=== PATIENT | male | born 1960 | race Caucasian/White ===

== ENCOUNTER → 2017-01-30 14:29 | Emergency (ER) | payer BC, MEDICAID ==
--- NOTE | 2017-01-30 16:12 | RAD ---
Indication: Hand injury, traumatic 4 views of left hand demonstrates no fracture. No other bone or joint abnormality is noted. Degenerative changes of the first scaphotrapezial trapezium joint is noted. IMPRESSION: No fracture of the left hand is noted.
--- NOTE | 2017-01-30 16:13 | RAD ---
Indication: Wrist injury, traumatic 2 views of left wrist demonstrates degenerative changes between the scaphoid and trapezium. No fracture is noted. 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
[2017-01-30 16:45] VITALS: BP 134/92
--- NOTE | 2017-01-30 16:48 | ED ---
Upper Extremity Pain - HPI Summary HPI Summary: Patient presents to ED with CC of right hand pain after a crush injury to the area 2 hours ago. He notes to a piece of his tractor fell down onto his hand and pinched between 2 objects. He notes to 4/10 pain, worse between thumb and index finger with mild bruising noted over the area. He is able to clench his fist, flex and extend at the wrist and rotate at the wrist. Denies numbness, tingling or temperature changes. Denies previous injury to the area. Hx of blood clots and currently on xarelto. - History of Current Complaint Chief Complaint: EDExtremityUpper Stated Complaint: LT HAND PAIN Time Seen by Provider: 01/30/17 16:22 Hx Obtained From: Patient Mechanism Of Injury: Blunt Trauma Onset/Duration: Started Hours Ago Timing: Constant Severity Initially: Moderate Severity Currently: Moderate Pain Location: Hand Character: Aching, Throbbing Aggravating Factor(s): Movement Alleviating Factor(s): Rest, Ice, Compression Associated Signs & Symptoms: Positive: Bruising Related History: Dominant Hand Right - Risk Factors Non-Orthopedic Risk Factor: Negative DVT Risk Factors: Negative Septic Arthritis Risk Factor: Negative Compartment Syndrome Risk Factors: Pain - Allergies/Home Medications Allergies/Adverse Reactions: Allergies Allergy/AdvReac Type Severity Reaction Status Date / Time Penicillins Allergy Intermediate Hives Verified 04/14/16 10:34 PMH/Surg Hx/FS Hx/Imm Hx Previously Healthy: Yes - HCL, PVD, DVT Endocrine/Hematology History: Reports: Hx Anticoagulant Therapy Denies: Hx Blood Disorders, Hx Diabetes Cardiovascular History: Reports: Hx Hypercholesterolemia, Hx Peripheral Vascular Disease, Other Cardiovascular Problems/Disorders - hardening of the arteries Denies: Hx Hypertension History: Denies: Hx Renal Disease Sensory History: Reports: Hx Contacts or Glasses Opthamlomology History: Reports: Hx Contacts or Glasses - Surgical History Surgery Procedure, Year, and Place: 01/2007 abdominal aorta repair; 07/2008 femoral bypass; 02/2011 arterial femoral bypass - Immunization History Date of Influenza Vaccine: declines Hx Pertussis Vaccination: No Immunizations Up to Date: Unable to Obtain/Confirm Infectious Disease History: No Infectious Disease History: Denies: Traveled Outside the [place] in Last 30 Days - Family History Known Family History: Positive: None - Social History Occupation: Employed Full-time Lives: With Family Alcohol Use: Occasionally Hx Substance Use: No Substance Use Type: Reports: None Smoking Status (MU): Light Every Day Tobacco Smoker Amount Used/How Often: 1 PDD Length of Time of Smoking/Using Tobacco: previously, 3PPD Review of Systems Constitutional: Negative Eyes: Negative Cardiovascular: Negative Respiratory: Negative Positive: no symptoms reported, see HPI Positive: Arthralgia, Myalgia Positive: Bruising Neurological: Negative Psychological: Normal All Other Systems Reviewed And Are Negative: Yes Physical Exam Triage Information Reviewed: Yes Vital Signs On Initial Exam: Initial Vitals Temp Pulse Resp BP Pulse Ox 97.2 F 113 20 141/80 96 01/30/17 14:32 01/30/17 14:32 01/30/17 14:32 01/30/17 14:32 01/30/17 14:32 Vital Signs Reviewed: Yes Appearance: Positive: Well-Appearing, No Pain Distress, Well-Nourished Skin: Positive: Warm, Skin Color Reflects Adequate Perfusion, Other - bruising noted over left dorsum of hand Neck: Positive: Supple, No Lymphadenopathy Respiratory/Lung Sounds: Positive: Clear to Auscultation, Breath Sounds Present Cardiovascular: Positive: Normal, RRR, Pulses are Symmetrical in both Upper and Lower Extremities Musculoskeletal: Positive: Pain @ - left dorsum of hand pain Psychiatric: Positive: Normal AVPU Assessment: Alert Diagnostics - Vital Signs Vital Signs Temp Pulse Resp BP Pulse Ox 01/30/17 14:32 97.2 F 113 20 141/80 96 - Laboratory Lab Statement: Any lab studies that have been ordered have been reviewed, and results considered in the medical decision making process. Course/Dx - Course Course Of Treatment: bruising noted over left dorsum of hand s/p crush injury. Xray of hand and wrist negative for fx. shows degenerative changes. Patient made aware. Encouarged tylenol and return if symptoms persist. Continue on xarelto as prescribed. Shun wrapped area for patient comfort. - Diagnoses Differential Diagnosis/HQI/PQRI: Positive: Contusion, Fracture (Open), Fracture (Closed) Provider Diagnoses: Contusion, hand Discharge - Discharge Plan Condition: Stable Disposition: HOME Patient Education Materials: Crush Injury (ED) Referrals: Reyna Morales NP [Primary Care Provider] - Additional Instructions: Follow up with PCP as needed Ibuprofen 600mg three times daily for pain Ice to the area x 2-3 days Continue with shun wrap for your comfort for at least 1 day. If you develop worsening bruising or swelling, return to ED. Images - Images Hands: 1 - pain with palpation
== END | disposition home or self-care (01) ==
LOC: ED 14:29
DX: S60.222A Contusion of left hand, initial encounter (principal); W23.0XXA Caught, crushed, jammed, or pinched between moving objects, initial encounter; Y92.9 Unspecified place or not applicable; E78.00 Pure hypercholesterolemia, unspecified; I73.9 Peripheral vascular disease, unspecified
CPT/HCPCS: 99282

== ENCOUNTER 2017-10-02 17:30 | Emergency (ER) | payer MEDICAID ==
--- OUTSIDE RECORDS SUMMARY | 2017-10-02 17:48 | XMS REPORT ---
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 PayID: [id number] SANDRA Arrieta [id number] Medigap Part B Expires: 2015 Policy Number: Oscar Layton [id number] Group Name: [employer] [address] PayID: [id number] SANDRA Arrieta [id number] Medigap Part B Effective: Policy Number: Oscar FLO Yady Layton 2015 [id number] Expires: 2016 Group Name: [employer] 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 He is eating some fruits and vegetables, not regularly Pets 2 dogs Pets 2 cats Occupation Currently Working [employer] in [place] Cigarette Use current cigarette smoker down to less than 1 pack daily ETOH Use Rarely consumes alcohol very rare drink Recreational Drug Use Denies Drug Use Smoking Patient is a current smoker, smokes every day Daily Caffeine Consumes on average 1 pot of coffee per day Exercise Type/Frequency Does not exercise job is very active Allergies, Adverse Reactions, Alerts Date Description Reaction Status Severity Comments 10/24/2006 PCN active Hives Medications Medication Date Status Form Strength Qnty SIG Indications Ordering Provider Chantix 09/10/ Active Tablets 0.5mg X 60tab one by mouth [place] Starting Month 2017 11 & s twice a day, Demario Morales Carlos 1 mg X 42 start per [employer] package directions Ruben Contour 08/03/ Active Strips 100un test blood E11.65 [place] Next Blood 2018 its sugar twice Demario Morales, Glucose Test a day & [employer] as needed Metformin HCL 05/03/ Active Tablets ER 500mg 30tab 1 po daily E11.65 [place] ER (Mod) 2016 24HR s Demario Morales [employer] Breo Ellipta 02/22/ Active Aerosol 200-25mcg 60uni 1 puff daily [place] 2016 /Inh ts for Demario Morales, breathing [employer] Nebulizer 04/10/ Active Kit 2unit use with [place] Kit/Tubing/[place] 2016 s albuterol as Demario Morales thpiece needed for [employer] breathing Proair HFA 02/14/ Active Aerosol 108(90Bas 8.500 1-2 puffs J44.9 [place] 2015 e) gm every 4-6 Demario Morales, mcg/Act hours as [employer] needed for wheeze or shortness of breath T.E.D. 02/10/ Active Misc 3unit Wear Daily I82.431 [place] Anti-Embolism 2016 s On The Right Demario Morales Stockings Leg [employer] Thigh High Albuterol 01/23/ Active Nebulizer (2.5mg/3M 75uni Inhale The J44.1 [place] Sulfate 2015 L) 0.083% ts Contents Of YosefKeisha Andrew, One Vial Via [employer] Nebulizer Every 4 Hours as Needed Atorvastatin 06/30/ Active Tablets 20mg 90tab take one [place] Calcium 2012 s tablet by Demario Morales, mouth every [employer] day for cholesterol Vitamin C 03/15/ Active Tablets 1000mg 1 po daily Reyna 2009 Demario Morales [employer] Xarelto / Active Tablets 20mg 60tab take one [place] s tablet by Demario Morales, mouth daily [employer] Nicotrol 02/03/ Hx Inhaler 10mg 168un puff 20 Z72.0 Camiloraymundo 2015 - its minutes Demario Morales, 05/04/ every 2-3 [employer] 2017 hours daily for 12 weeks; then gradually wean down over 12 weeks Prednisone 01/23/ Hx Tablets 50mg 5tabs one pill by J44.1 Reyna 2015 - mouth daily Demario Morales, 02/02/ for 5 days [employer] 2015 for breathing Advair Diskus 10/28/ Hx Aerosol 250-50mcg 60uni use 1 J44.9 [place] 2015 - /Dose ts inhalation Demario Morales 05/04/ two times a [employer] 2016 day Nasonex 09/30/ Hx Suspension 50mcg/Act 17gm 2 sprays J30.9 Reyna 2015 - each nostril Demario Morales, 05/04/ daily for [employer] 2016 rhinitis Dulera 09/02/ Hx Aerosol 200-5mcg/ 8.800 2 puff2 J44.9 [place] 2015 - Act gm twice a day Demario Morales, 10/28/ for [employer] 2015 breathing Proventil HFA 09/02/ Hx Aerosol 108(90Bas 6.7un Inhale Two J44.9 [place] 2015 - e) its Puffs By Demario Morales, 02/14/ mcg/Act Mouth Every [employer] 2016 4 Hours as Needed For Cough Wheeze Or For Shortness Of Breath Lipitor 06/12/ Hx Tablets 20mg 90tab 1 po qd for [place] 2012 - cholesterol Yosef. Andrew, 06/30/ [employer] 2012 Clobetasol 03/27/ Hx Foam 0.05% 50gm apply golf Shawn[place] Propionate 2013 - ball sized Demario Morales, 09/02/ amount to [facility]- 2016 scalp qhs for itching and dermatitis Atorvastatin 06/07/ Hx Tablets 40mg 45tab 1/2 po daily [place] Calcium 2011 - s for R. Andrew, 06/12/ cholesterol [facility] 2012 Clindamycin 04/18/ Hx Capsules 150mg 30cap 1 po tid for 528.3 [place] HCL 2009 - s 10 days for Demario Morales, 02/23/ dental [facility] 2010 infection Plavix 03/15/ Hx Tablets 75mg 1 po qd [place] 2009 - R. Andrew, 03/23/ [employer] 2016 Aspirin 03/15/ Hx Tablets DR 81mg 1 po qd [place] 2009 - R. Andrew, 03/23/ [employer] 2017 Keflex 09/09/ Hx Capsules 500mg 40cap 1 po qid for 461.8 [place] 2009 - s 10 days R. Andrew, 09/19/ [facility] 2009 Lipitor 06/04/ Hx Tablets 40mg 112ta 1/2 po daily [place] 2008 - bs for R. Andrew, 06/07/ cholesterol [employer] 2012 Doxycycline 09/22/ Hx Capsules 100mg 20cap 1 po bid for 780.60 [place] Hyclate 2008 - s infection R. Andrew, 03/15/ [employer] 2010 Lipitor 06/26/ Hx Tablets 20mg 56tab 1 PO qd Coreen 2007 - s P. 06/04/ Blegen, 2009 M.DKeisha Simvastatin 03/18/ Hx Tablets 40mg 30tab one po qhs Coreen 2006 - s P. 06/18/ Blegen, 2007 MSima Toprol XL 01/31/ Hx Tablets 25mg 15tab 1/2 po qd Coreen 2007 - s P. 03/15/ Blegen, 2009 Amaris Chantix 12/13/ Hx 0.5mg 1Pack Use as Coreen Starter Pack 2006 - - P. 02/23/ 0.5 MG qd X Blegen, 2010 3 Days Then M.D. 0.5 MG bid X 4 Days Then 1 MG PO bid. Quit Smoking After First Week On Med. Simvastatin 12/10/ Hx Tablets 20mg 30tab one po qhs Coreen 2006 P. 03/18/ Blegen, 2006 M.D. Tricor 11/28/ Hx Tablets 145mg 30tab 1 po qd Coreen 2006 P. 12/10/ Blegen, 2006 M.D. Tramadol HCL / Hx Tablets [facility] every R. , 03/23/ 4 hours as [employer] 2017 needed for pain. Colace Clear / Hx Capsules 50mg Take one Unknown 0000 - capsule by 03/23/ mouth every 2016 day as needed. Immunizations CPT Code Status Date Vaccine Lot # [id number] Refused 01/24/2016 Influenza Virus Vaccine, Quadrivalent, 3 Yr > Quad, Preserv Free Vital Signs Date Vital Result Comment 09/10/2017 Weight 197.00 lb Weight in kg's 89.359 BP Systolic 132 mmHg BP Diastolic 80 mmHg Heart Rate 98 /min Body Temperature 97.8 F Respiratory Rate 20 /min 08/03/2017 Weight 200.00 lb Weight in kg's 90.720 BP Systolic 122 mmHg BP Diastolic 70 mmHg Heart Rate 84 /min Body Temperature 97.2 F Respiratory Rate 16 /min O2 % BldC Oximetry 98 % 05/03/2017 Weight 199.00 lb Weight in kg's 90.266 BP Systolic 120 mmHg BP Diastolic 70 mmHg Heart Rate 88 /min Body Temperature 98.3 F Respiratory Rate 16 /min 03/23/2017 Weight 198.00 lb Weight in kg's 89.813 BP Systolic 124 mmHg BP Diastolic 72 mmHg Heart Rate 84 /min Body Temperature 98.7 F Respiratory Rate 20 /min Height 68 inches 5'8" BMI (Body Mass Index) 30.1 kg/m2 Right Visual Acuity Distance 20/25 Left Visual Acuity Distance 20/25 Both Visual Acuity Distance 20/20 Corrected 03/17/2016 Weight 196.00 lb Weight in kg's 88.906 BP Systolic 130 mmHg BP Diastolic 90 mmHg Heart Rate 96 /min Body Temperature 97.4 F Respiratory Rate 16 /min 03/03/2016 Weight 194.00 lb Weight in kg's 87.998 BP Systolic 112 mmHg BP Diastolic 80 mmHg Heart Rate 92 /min Body Temperature 99.0 F O2 % BldC Oximetry 98 % 02/11/2016 Weight 190.00 lb Weight in kg's 86.184 BP Systolic 110 mmHg BP Diastolic 72 mmHg Heart Rate 96 /min O2 % BldC Oximetry 98 % 02/04/2016 Weight 190.00 lb Weight in kg's 86.184 BP Systolic 110 mmHg BP Diastolic 78 mmHg Heart Rate 102 /min Body Temperature 97.6 F 01/24/2016 Weight 196.00 lb Weight in kg's 88.906 BP Systolic 120 mmHg BP Diastolic 78 mmHg Heart Rate 90 /min Body Temperature 97.7 F O2 % BldC Oximetry 95 % [id number] 10/01/2015 Weight 199.00 lb with shoes Weight in kg's 90.266 BP Systolic 132 mmHg BP Diastolic 80 mmHg Heart Rate 98 /min O2 % BldC Oximetry 98 % 09/02/2015 Weight 198.00 lb Weight in kg's 89.813 BP Systolic 132 mmHg BP Diastolic 68 mmHg Heart Rate 94 /min Body Temperature 97.8 F 03/27/2013 Weight 183.00 lb Weight in kg's 83.009 BP Systolic 120 mmHg BP Diastolic 66 mmHg Heart Rate 96 /min Height 67.5 inches 5'7.50" BMI (Body Mass Index) 28.2 kg/m2 Right Visual Acuity Distance 20/20 Corrected Left Visual Acuity Distance 20/20 Corrected Both Visual Acuity Distance 20/20 Corrected 03/17/2011 Weight 181.00 lb Weight in kg's 82.102 BP Systolic 124 mmHg BP Diastolic 68 mmHg Heart Rate 104 /min Body Temperature 98.2 F 02/23/2011 Weight 182.00 lb Weight in kg's 82.555 BP Systolic 130 mmHg BP Diastolic 78 mmHg Heart Rate 104 /min Body Temperature 97.7 F Height 67 inches 5'7" BMI (Body Mass Index) 28.5 kg/m2 04/18/2010 Weight 176.00 lb Weight in kg's 79.834 BP Systolic 120 mmHg BP Diastolic 80 mmHg Heart Rate 100 /min Body Temperature 97.6 F 03/15/2010 Weight 178.00 lb Weight in kg's 80.741 BP Systolic 120 mmHg BP Diastolic 80 mmHg Heart Rate 80 /min Height 67 inches 5'7" BMI (Body Mass Index) 27.9 kg/m2 09/09/2009 Weight 195.00 lb Weight in kg's 88.452 BP Systolic 130 mmHg BP Diastolic 80 mmHg Heart Rate 76 /min Body Temperature 97.6 F 03/09/2009 Weight 183.00 lb Weight in kg's 83.009 BP Systolic 142 mmHg BP Diastolic 80 mmHg Heart Rate 84 /min Height 67.25 inches 5'7.25" BMI (Body Mass Index) 28.4 kg/m2 Right Visual Acuity Distance 20/20 with glasses Left Visual Acuity Distance 20/20 with glasses 09/22/2008 Weight 193.00 lb Weight in kg's 87.545 BP Systolic 120 mmHg BP Diastolic 70 mmHg Heart Rate 72 /min Body Temperature 101.7 F 03/26/2008 Weight 179.00 lb Weight in kg's 81.194 BP Systolic 112 mmHg BP Diastolic 76 mmHg Heart Rate 68 /min Height 67 inches 5'7" BMI (Body Mass Index) 28.0 kg/m2 06/26/2007 Weight 188.00 lb Weight in kg's 85.277 BP Systolic 138 mmHg BP Diastolic 68 mmHg Heart Rate 74 /min Height 67 inches 5'7" BMI (Body Mass Index) 29.4 kg/m2 03/18/2007 Weight 180.00 lb Weight in kg's 81.648 BP Systolic 122 mmHg BP Diastolic 80 mmHg Heart Rate 80 /min Height 67 inches 5'7" BMI (Body Mass Index) 28.2 kg/m2 02/12/2007 Weight 178.00 lb Weight in kg's 80.741 BP Systolic 104 mmHg BP Diastolic 68 mmHg Heart Rate 110 /min Height 67 inches 5'7" BMI (Body Mass Index) 27.9 kg/m2 O2 % BldC Oximetry 97 % room air 01/24/2007 Weight 183.00 lb Weight in kg's 83.009 BP Systolic 130 mmHg BP Diastolic 70 mmHg Heart Rate 86 /min Height 67 inches 5'7" BMI (Body Mass Index) 28.7 kg/m2 12/13/2006 Weight 182.00 lb Weight in kg's 82.555 BP Systolic 120 mmHg BP Diastolic 70 mmHg Heart Rate 74 /min Height 67 inches 5'7" BMI (Body Mass Index) 28.5 kg/m2 11/28/2006 Weight 182.00 lb Weight in kg's 82.555 BP Systolic 118 mmHg BP Diastolic 70 mmHg Heart Rate 76 /min Respiratory Rate 18 /min Height 67 inches 5'7" BMI (Body Mass Index) 28.5 kg/m2 10/24/2006 Weight 186.00 lb Weight in kg's 84.370 BP Systolic 110 mmHg BP Diastolic 70 mmHg Heart Rate 68 /min Height 67 inches 5'7" BMI (Body Mass Index) 29.1 kg/m2 Results Test Date Test Result H/L Range Note CBC Auto Diff 09/10/2017 White Blood Count 12.2 10^3/uL High 3.5-10.8 Red Blood Count 5.10 10^6/uL 4.0-5.4 Hemoglobin 16.8 g/dL 14.0-18.0 Hematocrit 48 % 42-52 Mean Corpuscular Volume 95 fL High 80-94 Mean Corpuscular Hemoglobin 33 pg High 27-31 Mean Corpuscular HGB Conc 35 g/dL 31-36 Red Cell Distribution Width 14 % 10.5-15 Platelet Count 114 10^3/uL Low 150-450 Mean Platelet Volume 10 um3 7.4-10.4 Abs Neutrophils 8.4 10^3/uL High 1.5-7.7 Abs Lymphocytes 2.3 10^3/uL 1.0-4.8 Abs Monocytes 1.2 10^3/uL High 0-0.8 Abs Eosinophils 0.1 10^3/uL 0-0.6 Abs Basophils 0.1 10^3/uL 0-0.2 Abs Nucleated RBC 0 10^3/uL Granulocyte % 68.8 % 38-83 Lymphocyte % 19.1 % Low 25-47 Monocyte % 10.1 % High 1-9 Eosinophil % 1.2 % 0-6 Basophil % 0.8 % 0-2 Nucleated Red Blood Cells % 0.1 Comp Metabolic Panel 09/10/2017 Sodium 136 mmol/L 133-145 Potassium 4.2 mmol/L 3.5-5.0 Chloride 100 mmol/L Low 101-111 Co2 Carbon Dioxide 29 mmol/L 22-32 Anion Gap 7 mmol/L 2-11 Glucose 96 mg/dL 70-100 Blood Urea Nitrogen 10 mg/dL 6-24 Creatinine 0.98 mg/dL 0.67-1.17 BUN/Creatinine Ratio 10.2 8-20 Calcium 9.7 mg/dL 8.6-10.3 Total Protein 7.6 g/dL 6.4-8.9 Albumin 4.2 g/dL 3.2-5.2 Globulin 3.4 g/dL 2-4 Albumin/Globulin Ratio 1.2 1-3 Total Bilirubin 0.60 mg/dL 0.2-1.0 Alkaline Phosphatase 88 U/L 34-104 Alt 47 U/L 7-52 Ast 44 U/L High 13-39 Egfr Non- 79.1 >60 Egfr 101.8 >60 1 Lipid Profile (Trig/Chol/HDL) 09/10/2017 Triglycerides 267 mg/dL 2 Cholesterol 147 mg/dL 3 HDL Cholesterol 28.3 mg/dL 4 LDL Cholesterol 65 mg/dL 5 Order 09/10/2017 EKG <pending> Laboratory test finding 08/07/2017 Hemoglobin A1c 7.9 % High 4.0-5.6 6 Laboratory test finding 08/07/2017 Inr 1.37 High 0.77-1.02 Partial Thrombo Time PTT 36.5 seconds High 26.0-36.3 Basic Metabolic Panel 08/07/2017 Sodium 134 mmol/L 133-145 Potassium 3.9 mmol/L 3.5-5.0 Chloride 101 mmol/L 101-111 Co2 Carbon Dioxide 26 mmol/L 22-32 Anion Gap 7 mmol/L 2-11 Glucose 121 mg/dL High 70-100 Blood Urea Nitrogen 12 mg/dL 6-24 Creatinine 0.88 mg/dL 0.67-1.17 BUN/Creatinine Ratio 13.6 8-20 Calcium 9.4 mg/dL 8.6-10.3 Egfr Non- 89.6 >60 Egfr 115.2 >60 7 CBC Auto Diff 08/07/2017 White Blood Count 10.6 10^3/uL 3.5-10.8 Red Blood Count 5.46 10^6/uL High 4.0-5.4 Hemoglobin 17.6 g/dL 14.0-18.0 Hematocrit 52 % 42-52 Mean Corpuscular Volume 94 fL 80-94 Mean Corpuscular Hemoglobin 32 pg High 27-31 Mean Corpuscular HGB Conc 34 g/dL 31-36 Red Cell Distribution Width 14 % 10.5-15 Platelet Count 108 10^3/uL Low 150-450 Mean Platelet Volume 10 um3 7.4-10.4 Abs Neutrophils 6.2 10^3/uL 1.5-7.7 Abs Lymphocytes 2.8 10^3/uL 1.0-4.8 Abs Monocytes 1.3 10^3/uL High 0-0.8 Abs Eosinophils 0.2 10^3/uL 0-0.6 Abs Basophils 0.1 10^3/uL 0-0.2 Abs Nucleated RBC 0 10^3/uL Granulocyte % 58.9 % 38-83 Lymphocyte % 26.0 % 25-47 Monocyte % 12.7 % High 1-9 Eosinophil % 1.8 % 0-6 Basophil % 0.6 % 0-2 Nucleated Red Blood Cells % 0 Urine DIP 03/23/2017 Leukocytes neg Neg Urine Nitrites neg Neg Urobilinogen norm Norm Total Protein, Urine neg Neg Urine pH 7.0 High 5-6 Urine Blood neg Neg Specific [place] 1.015 1.01-1.02 Urine Ketones neg Neg Urine Bilirubin neg Neg Urine Glucose neg Norm CBC Auto Diff 03/23/2017 White Blood Count 13.2 10^3/uL High 3.5-10.8 Red Blood Count 4.98 10^6/uL 4.0-5.4 Hemoglobin 15.9 g/dL 14.0-18.0 Hematocrit 47 % 42-52 Mean Corpuscular Volume 94 fL 80-94 Mean Corpuscular Hemoglobin 32 pg High 27-31 Mean Corpuscular HGB Conc 34 g/dL 31-36 Red Cell Distribution Width 14 % 10.5-15 Platelet Count 125 10^3/uL Low 150-450 Mean Platelet Volume 10 um3 7.4-10.4 Abs Neutrophils 8.2 10^3/uL High 1.5-7.7 Abs Lymphocytes 3.2 10^3/uL 1.0-4.8 Abs Monocytes 1.4 10^3/uL High 0-0.8 Abs Eosinophils 0.3 10^3/uL 0-0.6 Abs Basophils 0.1 10^3/uL 0-0.2 Abs Nucleated RBC 0.02 10^3/uL Granulocyte % 62.4 % 38-83 Lymphocyte % 24.3 % Low 25-47 Monocyte % 10.5 % High 1-9 Eosinophil % 2.0 % 0-6 Basophil % 0.8 % 0-2 Nucleated Red Blood Cells % 0.2 Comp Metabolic Panel 03/23/2017 Sodium 134 mmol/L 133-145 Potassium 3.9 mmol/L 3.5-5.0 Chloride 106 mmol/L 101-111 Co2 Carbon Dioxide 26 mmol/L 22-32 Anion Gap 2 mmol/L 2-11 Glucose 154 mg/dL High 70-100 Blood Urea Nitrogen 8 mg/dL 6-24 Creatinine 0.85 mg/dL 0.67-1.17 BUN/Creatinine Ratio 9.4 8-20 Calcium 9.3 mg/dL 8.6-10.3 Total Protein 7.3 g/dL 6.4-8.9 Albumin 3.9 g/dL 3.2-5.2 Globulin 3.4 g/dL 2-4 Albumin/Globulin Ratio 1.1 1-3 Total Bilirubin 0.40 mg/dL 0.2-1.0 Alkaline Phosphatase 94 U/L 34-104 Alt 35 U/L 7-52 Ast 31 U/L 13-39 Egfr Non- 93.2 >60 Egfr 119.9 >60 8 Lipid Profile (Trig/Chol/HDL) 03/23/2017 Triglycerides 272 mg/dL 9 Cholesterol 129 mg/dL 10 HDL Cholesterol 23.1 mg/dL 11 LDL Cholesterol 52 mg/dL 12 Laboratory test finding 03/23/2017 TSH (Thyroid Stim 1.02 mcIU/mL 0.34- 5.60 13 Horm) Hemoglobin A1c (Glyco HGB) 7.5 % High Less than 6.0 14 CBC Auto Diff 01/31/2016 White Blood Count 15.6 10^3/uL High 3.5-10.8 Red Blood Count 4.58 10^6/uL 4.0-5.4 Hemoglobin 14.0 g/dL 14.0-18.0 Hematocrit 42 % 42-52 Mean Corpuscular Volume 92 fL 80-94 Mean Corpuscular Hemoglobin 31 pg 27-31 Mean Corpuscular HGB Conc 33 g/dL 31-36 Red Cell Distribution Width 13 % 10.5-15 Platelet Count 164 10^3/uL 150-450 Mean Platelet Volume 9 um3 7.4-10.4 Abs Neutrophils 11.5 10^3/uL High 1.5-7.7 Abs Lymphocytes 2.2 10^3/uL 1.0-4.8 Abs Monocytes 1.4 10^3/uL High 0-0.8 Abs Eosinophils 0.3 10^3/uL 0-0.6 Abs Basophils 0.1 10^3/uL 0-0.2 Abs Nucleated RBC 0 10^3/uL Granulocyte % 73.8 % 38-83 Lymphocyte % 14.3 % Low 25-47 Monocyte % 9.2 % High 1-9 Eosinophil % 1.8 % 0-6 Basophil % 0.9 % 0-2 Nucleated Red Blood Cells % 0 Comp Metabolic Panel 01/31/2016 Sodium 133 mmol/L 133-145 Potassium 3.6 mmol/L 3.5-5.0 Chloride 101 mmol/L 101-111 Co2 Carbon Dioxide 23 mmol/L 22-32 Anion Gap 9 mmol/L 2-11 Glucose 155 mg/dL High 70-100 Blood Urea Nitrogen 19 mg/dL 6-24 Creatinine 0.95 mg/dL 0.67-1.17 BUN/Creatinine Ratio 20.0 8-20 Calcium 9.1 mg/dL 8.6-10.3 Total Protein 6.8 g/dL 6.4-8.9 Albumin 3.5 g/dL 3.2-5.2 Globulin 3.3 g/dL 2-4 Albumin/Globulin Ratio 1.1 1-3 Total Bilirubin 0.40 mg/dL 0.2-1.0 Alkaline Phosphatase 89 U/L 34-104 Alt 70 U/L High 7-52 Ast 33 U/L 13-39 Egfr Non- 82.6 >60 Egfr 106.2 >60 15 Laboratory test finding 01/31/2016 C Reactive Protein 41.69 mg/L High &lt ; 5.00 16 Inr/Protime 01/31/2016 Inr 0.97 0.89-1.11 Laboratory test finding 01/31/2016 Lactic Acid 1.5 mmol/L 0.5-2.0 17 Blood Culture SEE RESULT BELOW 18 CBC Auto Diff 09/02/2015 White Blood Count 10.1 10^3/uL 3.5-10.8 Red Blood Count 5.12 10^6/uL 4.0-5.4 Hemoglobin 16.6 g/dL 14.0-18.0 Hematocrit 48 % 42-52 Mean Corpuscular Volume 94 fL 80-94 Mean Corpuscular Hemoglobin 32 pg High 27-31 Mean Corpuscular HGB Conc 35 g/dL 31-36 Red Cell Distribution Width 13 % 10.5-15 Platelet Count 193 10^3/uL 150-450 Mean Platelet Volume 10 um3 7.4-10.4 Abs Neutrophils 5.7 10^3/uL 1.5-7.7 Abs Lymphocytes 2.8 10^3/uL 1.0-4.8 Abs Monocytes 1.3 10^3/uL High 0-0.8 Abs Eosinophils 0.3 10^3/uL 0-0.6 Abs Basophils 0.1 10^3/uL 0-0.2 Abs Nucleated RBC 0.01 10^3/uL Granulocyte % 56.7 % 38-83 Lymphocyte % 27.6 % 25-47 Monocyte % 12.4 % High 1-9 Eosinophil % 2.6 % 0-6 Basophil % 0.7 % 0-2 Nucleated Red Blood Cells % 0.1 Comp Metabolic Panel 09/02/2015 Sodium 137 mmol/L 133-145 Potassium 3.9 mmol/L 3.5-5.0 Chloride 102 mmol/L 101-111 Co2 Carbon Dioxide 26 mmol/L 22-32 Anion Gap 9 mmol/L 2-11 Glucose 123 mg/dL High 70-100 Blood Urea Nitrogen 17 mg/dL 6-24 Creatinine 1.04 mg/dL 0.67-1.17 BUN/Creatinine Ratio 16.3 8-20 Calcium 9.4 mg/dL 8.6-10.3 Total Protein 6.8 g/dL 6.4-8.9 Albumin 4.1 g/dL 3.2-5.2 Globulin 2.7 g/dL 2-4 Albumin/Globulin Ratio 1.5 1-3 Total Bilirubin 0.40 mg/dL 0.2-1.0 Alkaline Phosphatase 76 U/L 34-104 Alt 25 U/L 7-52 Ast 22 U/L 13-39 Egfr Non- 74.4 >60 Egfr 95.7 >60 19 Laboratory test finding 09/02/2015 TSH (Thyroid Stim Horm) 0.91 ?IU/mL 0.34-5.60 Lipid Profile 09/02/2015 Triglycerides 478 mg/dL 20 (Trig/Chol/HDL) Cholesterol 134 mg/dL 21 HDL Cholesterol 21.6 mg/dL 22 Laboratory test finding 03/27/2013 TSH (Thyroid Stimulating 0.78 miu/mL 0.34-5.60 Horm) PSA Screening 0.8 ng/mL 0-4.0 23 Urine DIP 03/27/2013 Leukocytes neg Neg Urine Nitrites neg Neg Urine pH 7 High 5-6 Total Protein, Urine neg Neg Urine Glucose norm Norm Urine Ketones neg Neg Urobilinogen norm Norm Urine Bilirubin neg Neg Urine Blood neg Neg Specific [place] 1.01 1.01-1.02 CBC No Diff 03/27/2013 White Blood Count 10.8 10^3/uL 4.8-10.8 Red Blood Count 5.02 10^6/uL 4.0-5.4 Hemoglobin 16.3 g/dL 14.0-18.0 Hematocrit 47 % 42-52 Mean Corpuscular Volume 94 fL 80-94 Mean Corpuscular Hemoglobin 33 pg High 27-31 Mean Corpuscular HGB Conc 35 g/dL 31-36 Red Cell Distribution Width 13 % 10.5-15 Platelet Count 175 10^3/uL 150-450 Mean Platelet Volume 10 um3 7.4-10.4 Comp Metabolic Panel 03/27/2013 Sodium 138 mmol/L 133-145 Potassium 3.7 mmol/L 3.5-5.0 Chloride 101 mmol/L 101-111 Co2 Carbon Dioxide 31.0 mmol/L 22-32 Anion Gap 6.0 mmol/L 2-11 Glucose 76 mg/dL 70-100 Blood Urea Nitrogen 11 mg/dL 6-24 Creatinine 1.10 mg/dL 0.50-1.40 BUN/Creatinine Ratio 10.0 8-20 Calcium 9.6 mg/dL 8.1-9.9 Total Protein 7.0 g/dL 6.2-8.1 Albumin 3.9 g/dL 3.6-5.4 Globulin 3.1 g/dL 2-4 Albumin/Globulin Ratio 1.3 1-3 Total Bilirubin 0.8 mg/dL 0.4-1.5 Alkaline Phosphatase 94 U/L 30-110 Alt 23 U/L 14-54 Ast 21 U/L 12-42 Egfr Non- 70.3 >60 Egfr 90.4 >60 24 Lipid Profile (Trig/Chol/HDL) 03/27/2013 Triglycerides 311 mg/dL High 40- 200 Cholesterol 146 mg/dL Less than 200 HDL Cholesterol 24 mg/dL Low 40-60 25 Cholesterol/HDL Ratio 6.1 Average High 1-4.44 LDL Cholesterol 59.8 Less Than 100 26 Urine DIP 02/23/2011 Leukocytes neg Neg Urine Nitrites neg Neg Urine pH 6 5-6 Total Protein, Urine trace Neg Urine Glucose norm Norm Urine Ketones neg Neg Urobilinogen norm Norm Urine Bilirubin neg Neg Urine Blood trace Neg Specific [place] 1.010 1.01-1.02 Lipid Profile (Trig/Chol/HDL) 03/15/2010 Triglyceride 184 mg/dL 40-200 Cholesterol 138 mg/dL Less Than 200 27 High Density Lipoprotein 23 mg/dL Low 40-60 28 Cholesterol/HDL Ratio 6.00 AVERAGE High 1-4.97 Low Density Lipoprotein 78 mg/dL Less Than 100 29 Statin 03/15/2010 Ast (Sgot) 59 U/L High 12-42 Alt (SGPT) 24 U/L 17-63 Urine DIP 03/15/2010 Leukocytes NEG Neg Urine Nitrites NEG Neg Urine pH 6 5-6 Total Protein, Urine NEG Neg Urine Glucose NORM Norm Urine Ketones NEG Neg Urobilinogen NORM Norm Urine Bilirubin NEG Neg Urine Blood NEG Neg Specific [place] 1.000 Low 1.01-1.02 Urine DIP 03/09/2009 Leukocytes NEG Neg Urine Nitrites NEG Neg Urine pH 5 5-6 Total Protein, Urine NEG Neg Urine Glucose NORM Norm Urine Ketones NEG Neg Urobilinogen NORM Norm Urine Bilirubin NEG Neg Urine Blood NEG Neg Specific [place] 1.005 Low 1.01-1.02 CBC 09/22/2008 WBC 14.2 x103 High 4.3-10.9 RBC 4.88 x106 4.70-6.20 Hemoglobin 14.9 g/dL 13.0-17.0 Hematocrit 44.2 % 39.0-50.0 MCV 90.6 fl 82.0-98.0 MCH 30.5 pg 27.5-33.5 MCHC 33.7 g/dL 32.0-36.0 RDW 14.0 % 11.5-14.5 Platelet Count 166 x103 130-400 MPV 12.0 fl High 6.5-10.5 Segmented Neutrophils 69.2 % 44.0-74.0 Lymphocytes 12.7 % Low 15.0-45.0 Monocytes 17.7 % High 2.0-13.0 Eosinophils 0.2 % 0.0-6.0 Basophils 0.2 % 0.0-2.0 Neutrophil Absolute 9.8 x103 High 1.4-7.0 Lymphocytes Absolute 1.8 x103 1.0-3.4 Monocyte Absolute 2.5 x103 High 0.2-1.0 Eosinophil Absolute 0.0 x103 0.0-0.5 Basophil Absolute 0.0 x103 0.0-0.2 Laboratory test finding 09/22/2008 Flu Test A&B, [place] neg Laboratory test finding 07/13/2008 CPK (Creatine Kinase) 90 U/L 0-200 Comp Metabolic Panel 07/13/2008 Sodium 137 mmol/L 135-145 Potassium 4.2 mmol/L 3.5-5.0 Chloride 104 mmol/L 101-111 Co2 (Carbon Dioxide) 27.0 mmol/L 22-32 Anion Gap 6.0 mmol/L 2-11 30 Glucose 89 mg/dL 70-100 31 BUN 8 mg/dL 6-24 Creatinine 0.90 mg/dL 0.50-1.40 One Over Creatinine 1.10 BUN/Creatinine Ratio 8.9 8-20 Calcium 9.4 mg/dL 8.1-9.9 32 Total Protein 6.9 GM/DL 6.2-8.1 Albumin 3.9 GM/DL 3.6-5.4 Globulin 3.0 GM/DL 2-4 Albumin/Globulin Ratio 1.3 1-3 Bilirubin Total 0.5 mg/dL 0.4-1.5 Alkaline Phosphatase 103 U/L 39-117 Alt (SGPT) 27 U/L 17-63 Ast (Sgot) 24 U/L 12-42 Lipid Profile (Trig/Chol/HDL) 07/13/2008 Triglyceride 247 mg/dL High 40- 200 Cholesterol 162 mg/dL Less Than 200 33 High Density Lipoprotein 32 mg/dL Low 40-60 34 Cholesterol/HDL Ratio 5.06 AVERAGE High 1-4.97 Low Density Lipoprotein 81 mg/dL Less Than 100 35 Laboratory test finding 07/13/2008 Hemoglobin A1c 6.2 % High <6.0 36 Statin 11/16/2007 Ast (Sgot) 28 U/L 12-42 37 Alt (SGPT) 28 U/L 17-63 37 Lipid Profile 11/16/2007 Cholesterol/HDL Ratio 8.06 AVERAGE High 1-4.97 37 (Trig/Chol/HDL) Cholesterol 145 mg/dL Less Than 200 37, 38 Triglyceride 142 mg/dL 40-200 37 High Density Lipoprotein 18 mg/dL Low 40-60 37, 39 Low Density Lipoprotein 99 mg/dL Less Than 100 37, 40 Laboratory test finding 11/16/2007 CPK (Creatine Kinase) 176 U/L 0-200 37 Hemoglobin A1c 6.4 % High <6.0 37, 41 Laboratory test finding 09/04/2007 CPK (Creatine Kinase) 206 U/L High 0- 200 Statin 08/10/2007 Ast (Sgot) 28 U/L 12-42 Alt (SGPT) 31 U/L 17-63 Lipid Profile 08/10/2007 Cholesterol/HDL Ratio 5.33 AVERAGE High 1-4.97 (Trig/Chol/HDL) Cholesterol 128 mg/dL Less Than 200 42 Triglyceride 110 mg/dL 40-200 High Density Lipoprotein 24 mg/dL Low 40-60 43 Low Density Lipoprotein 82 mg/dL Less Than 100 44 Laboratory test finding 08/10/2007 CPK (Creatine Kinase) 208 U/L High 0- 200 Comp Metabolic Panel 06/26/2007 One Over Creatinine 0.83 Anion Gap 7.0 mmol/L 2-11 45 Albumin/Globulin Ratio 1.1 1-3 Albumin 3.9 GM/DL 3.6-5.4 Alkaline Phosphatase 89 U/L 39-117 Alt (SGPT) 32 U/L 17-63 Ast (Sgot) 28 U/L 12-42 BUN 17 mg/dL 6-24 Calcium 9.3 mg/dL 8.7-10.2 Chloride 104 mmol/L 101-111 Co2 (Carbon Dioxide) 27.0 mmol/L 22-32 Globulin 3.5 GM/DL 2-4 Glucose 97 mg/dL 70-105 Potassium 3.9 mmol/L 3.5-5.0 Sodium 138 mmol/L 135-145 Bilirubin Total 0.7 mg/dL 0.4-1.5 Total Protein 7.4 GM/DL 6.2-8.1 BUN/Creatinine Ratio 14.2 8-20 Creatinine 1.2 mg/dL 0.5-1.4 Laboratory test finding 06/26/2007 CPK (Creatine Kinase) 111 U/L 0-200 Hemoglobin A1c 6.5 % High <6.0 46 Magnesium 2.1 mg/dL 1.7-2.6 Comp Metabolic Panel 04/20/2007 One Over Creatinine 1.00 Anion Gap 5.0 mmol/L 2-11 47 Albumin/Globulin Ratio 1.0 1-3 Albumin 3.6 GM/DL 3.6-5.4 Alkaline Phosphatase 109 U/L 39-117 Alt (SGPT) 61 U/L 17-63 Ast (Sgot) 46 U/L High 12-42 BUN 8 mg/dL 6-24 Calcium 8.9 mg/dL 8.7-10.2 Chloride 105 mmol/L 101-111 Co2 (Carbon Dioxide) 27.0 mmol/L 22-32 Globulin 3.6 GM/DL 2-4 Glucose 107 mg/dL High 70-105 Potassium 4.5 mmol/L 3.5-5.0 Sodium 137 mmol/L 135-145 Bilirubin Total 0.5 mg/dL 0.4-1.5 Total Protein 7.2 GM/DL 6.2-8.1 BUN/Creatinine Ratio 8.0 8-20 Creatinine 1.0 mg/dL 0.5-1.4 Lipid Profile 04/20/2007 Cholesterol/HDL Ratio 6.74 AVERAGE High 1-4.97 (Trig/Chol/HDL) Cholesterol 128 mg/dL Less Than 200 48 Triglyceride 334 mg/dL High 40-200 High Density Lipoprotein 19 mg/dL Low 40-60 49 Low Density Lipoprotein 42 mg/dL Less Than 100 50 Protime 04/20/2007 Inr 0.89 51 Protime 11.3 10.9-13.1 Comp Metabolic Panel 03/18/2007 One Over Creatinine 1.00 Anion Gap 8.0 mmol/L 2-11 52 Albumin/Globulin Ratio 1.1 1-3 Albumin 3.7 GM/DL 3.6-5.4 Alkaline Phosphatase 131 U/L High 39-117 Alt (SGPT) 28 U/L 17-63 Ast (Sgot) 25 U/L 12-42 BUN 7 mg/dL 6-24 Calcium 9.3 mg/dL 8.7-10.2 Chloride 102 mmol/L 101-111 Co2 (Carbon Dioxide) 28.0 mmol/L 22-32 Globulin 3.5 GM/DL 2-4 Glucose 103 mg/dL 70-105 Potassium 3.9 mmol/L 3.5-5.0 Sodium 138 mmol/L 135-145 Bilirubin Total 0.6 mg/dL 0.4-1.5 Total Protein 7.2 GM/DL 6.2-8.1 BUN/Creatinine Ratio 7.0 Low 8-20 Creatinine 1.0 mg/dL 0.5-1.4 Protime 03/18/2007 Inr 3.36 53 Protime 22.0 High 10.9-13.1 PT (On Therapy) 03/04/2007 PT (On Therapy) 28.9 seconds High 11.9-13.9 54 , 55 Inr 3.0 54, 56 Protime 02/21/2007 Inr 1.71 57 Protime 15.7 High 10.9-13.1 Protime 02/14/2007 Inr 2.08 58 Protime 17.3 High 10.9-13.1 CBC With Manual Diff 02/14/2007 White Blood Count 15.3 CUMM High 4.8-10.8 Absolute Neutrophil Count 10.2 Anisocytosis SLIGHT Band Neutrophil 1 % 0-8 Hematocrit 36 % Low 42-52 Hemoglobin 12.5 g/dL Low 14.0-18.0 Eosenophil 1 % 0-6 Lymphocyte 23 % 5-47 Mean Corpuscular HGB Cone 34 g/dL 32-36 Mean Corpuscular Hemoglob 31 pg 27-31 Mean Corpuscular Volume 92 um3 80-94 Monocyte 9 % 0-13 Mean Platelet Volume 9.0 um3 7.4-10.4 Platelet Count 332 CUMM 150-450 Polysegmented Neutrophil 66 % 38-83 Red Cell Count 3.97 CUMM Low 4.6-6.2 Redcell Distribution WDTH 13 % 10.5-15 Urine DIP 01/24/2007 Leukocytes neg Neg Urine Nitrites neg Neg Urine pH 5 5-6 Total Protein, Urine neg Neg Urine Glucose norm Norm Urine Ketones neg Neg Urobilinogen norm Norm Urine Bilirubin neg Neg Urine Blood neg Neg Specific [place] n/a Low 1.01-1.02 Statin 01/17/2007 Ast (Sgot) 25 U/L 12-42 Alt (SGPT) 26 U/L 17-63 Lipid Profile 01/17/2007 Cholesterol/HDL Ratio 6.30 AVERAGE High 1-4.97 (Trig/Chol/HDL) Cholesterol 145 mg/dL Less Than 200 59 Triglyceride 224 mg/dL High 40-200 High Density Lipoprotein 23 mg/dL Low 40-60 60 Low Density Lipoprotein 77 mg/dL Less Than 100 61 Laboratory test finding 01/17/2007 Hemoglobin A1c 6.2 % High <6.0 62 CPK (Creatine Kinase) 124 U/L 0-200 Laboratory test finding 11/28/2006 Hemoglobin A1c 6.3 % High <6.0 63 TSH 0.83 MIU/ML 0.34-5.60 Lipid Profile 10/26/2006 Cholesterol/HDL Ratio 11.20 AVERAGE High 1-4.97 64 (Trig/Chol/HDL) Cholesterol 224 mg/dL High Less Than 200 64, 65 Triglyceride 427 mg/dL High 40-200 64 High Density Lipoprotein 20 mg/dL Low 40-60 64, 66 Comp Metabolic Panel 10/26/2006 One Over Creatinine 1.11 64 Anion Gap 10.0 mmol/L 2-11 64, 67 Albumin/Globulin Ratio 1.2 1-3 64 Albumin 3.8 GM/DL 3.6-5.4 64 Alkaline Phosphatase 113 U/L 39-117 64 Alt (SGPT) 32 U/L 17-63 64 Ast (Sgot) 26 U/L 12-42 64 BUN 17 mg/dL 6-24 64 Calcium 9.3 mg/dL 8.7-10.2 64 Chloride 102 mmol/L 101-111 64 Co2 (Carbon Dioxide) 25.0 mmol/L 22-32 64 Globulin 3.2 GM/DL 2-4 64 Glucose 116 mg/dL High 70-105 64 Potassium 4.1 mmol/L 3.5-5.0 64 Sodium 137 mmol/L 135-145 64 Bilirubin Total 0.5 mg/dL 0.4-1.5 64 Total Protein 7.0 GM/DL 6.2-8.1 64 BUN/Creatinine Ratio 18.9 8-20 64 Creatinine 0.9 mg/dL 0.5-1.4 64 CBC With Electronic Diff 10/26/2006 White Blood Count 10.5 CUMM 4.8-10.8 64 Abs Basophils 0 0-0.2 64 Abs Eosinophils 0.2 0-0.6 64 Absolute Neutrophil Count 6.0 1.5-7.7 64 Abs Lymphs 2.8 1.0-4.8 64 Abs Mononuclear 1.4 High 0-0.8 64 Basophil % 0.3 % 0-2 64 Hematocrit 43 % 42-52 64 Hemoglobin 14.9 g/dL 14.0-18.0 64 Eosinophil % 1.8 % 0-6 64 Gran % 57.4 % 38-83 64 Lymph % 26.9 % 20-45 64 Mean Corpuscular HGB Cone 35 g/dL 32-36 64 Mean Corpuscular Hemoglob 31 pg 27-31 64 Mean Corpuscular Volume 90 um3 80-94 64 Mean Platelet Volume 9.1 um3 7.4-10.4 64 Mononuclear % 13.6 % High 1-9 64 Platelet Count 233 CUMM 150-450 64 Red Cell Count 4.76 CUMM 4.6-6.2 64 Redcell Distribution WDTH 14 % 10.5-15 64 1 Because ethnic data is not always readily available, this report includes an eGFR for both -Americans and non- Americans. The National Kidney Disease Education Program (NKDEP) does not endorse the use of the MDRD equation for patients that are not between the ages of 18 and 70, are , have extremes of body size, muscle mass, or nutritional status, or are non- or non-. According to the National Kidney Foundation, irrespective of diagnosis, the stage of the disease is based on the level of kidney function: Stage Description GFR(mL/min/1.73 m(2)) 1 Kidney damage with normal or decreased GFR 90 2 Kidney damage with mild decrease in GFR 60-89 3 Moderate decrease in GFR 30-59 4 Severe decrease in GFR 15-29 5 Kidney failure <15 (or dialysis) 2 Desirable: <150 Borderline High: 150-199 High: 200-499 Very High: >500 3 Desirable: <200 Borderline High: 200-239 High: >239 4 Low: <40 Desirable: 40-60 High: >60 5 Desirable: <100 Near Optimal: 100-129 Borderline High: 130-159 High: 160-189 Very High: >189 6 Therapeutic target for the treatment of diabetes mellitus patients is <7% HBA1C, and in selective patients <6.0%. Please refer to [employer] diabetic care guidelines for further information. 7 Because ethnic data is not always readily available, this report includes an eGFR for both -Americans and non- Americans. The National Kidney Disease Education Program (NKDEP) does not endorse the use of the MDRD equation for patients that are not between the ages of 18 and 70, are , have extremes of body size, muscle mass, or nutritional status, or are non- or non-. According to the National Kidney Foundation, irrespective of diagnosis, the stage of the disease is based on the level of kidney function: Stage Description GFR(mL/min/1.73 m(2)) 1 Kidney damage with normal or decreased GFR 90 2 Kidney damage with mild decrease in GFR 60-89 3 Moderate decrease in GFR 30-59 4 Severe decrease in GFR 15-29 5 Kidney failure <15 (or dialysis) 8 Because ethnic data is not always readily available, this report includes an eGFR for both -Americans and non- Americans. The National Kidney Disease Education Program (NKDEP) does not endorse the use of the MDRD equation for patients that are not between the ages of 18 and 70, are , have extremes of body size, muscle mass, or nutritional status, or are non- or non-. According to the National Kidney Foundation, irrespective of diagnosis, the stage of the disease is based on the level of kidney function: Stage Description GFR(mL/min/1.73 m(2)) 1 Kidney damage with normal or decreased GFR 90 2 Kidney damage with mild decrease in GFR 60-89 3 Moderate decrease in GFR 30-59 4 Severe decrease in GFR 15-29 5 Kidney failure <15 (or dialysis) 9 Desirable <150 Borderline high 150-199 High 200-499 Very High >500 10 Desirable <200 Borderline high 200-239 High >239 11 Low <40 Desirable: 40-60 High: >60 12 Desirable: <100 mg/dL Near Optimal: 100-129 mg/dL Borderline High: 130-159 mg/dL High: 160-189 mg/dL Very High: >189 mg/dL 13 [id number] Therapeutic target for the treatment of diabetes Mellitus patients is <7% HBA1C, and in selective patients <6.0%.Please refer to [employer] Diabetic care guidelines for further information. 15 Because ethnic data is not always readily available, this report includes an eGFR for both -Americans and non- Americans. The National Kidney Disease Education Program (NKDEP) does not endorse the use of the MDRD equation for patients that are not between the ages of 18 and 70, are , have extremes of body size, muscle mass, or nutritional status, or are non- or non-. According to the National Kidney Foundation, irrespective of diagnosis, the stage of the disease is based on the level of kidney function: Stage Description GFR(mL/min/1.73 m(2)) 1 Kidney damage with normal or decreased GFR 90 2 Kidney damage with mild decrease in GFR 60-89 3 Moderate decrease in GFR 30-59 4 Severe decrease in GFR 15-29 5 Kidney failure <15 (or dialysis) 16 Acute inflammation: >10.00 17 [facility] Severe Sepsis and Septic Shock Management Bundle Measure requires all lactic acids initially measuring >2.0 mmol/L be repeated. 18 SEE RESULT BELOW Name: YADY LAYTON : [address]: Brigido Pressley MD Acct: [id number] Unit: [id number] AGE: 56 Location: [place] [address] Re01/31/16 Dis: 02/01/16 SEX: M Status: DIS Mitchell SPEC: [id number] HEYDI: 01/31/16-[address] [facility] [address]: Alejo Page DO REQ: [id number] RECD: 01/31/16 STATUS: [facility]: Coreen Cullen MD _ SOURCE: BLOOD,VENO SPDESC: ORDERED: Blood Cult COMMENTS: Verbal to RENY BENAVIDEZ/DR. CULLEN by [id number] at 1044 on 02/04/16. Results read back accurately. Procedure Result Reported Site Aerobic Culture Bottle Final 02/06/16- 0752 ML Aerobic Bottle Gram Stain Gram Positive Coccobacilli Organism 1 CORYNEBACTERIUM SPECIES - Sensitivity not performed; probable contaminant. If further testing is required, please call microbiology laboratory. Anaerobic Culture Bottle Final 02/05/16- 1807 ML No Growth Day 5 * ML - MAIN LAB ([facility]) . END OF REPORT * ML=Testing performed at Main Lab DEPARTMENT OF PATHOLOGY, [address] [place] [address] M[address] Director [facility] # [id number] 19 Because ethnic data is not always readily available, this report includes an eGFR for both -Americans and non- Americans. The National Kidney Disease Education Program (NKDEP) does not endorse the use of the MDRD equation for patients that are not between the ages of 18 and 70, are , have extremes of body size, muscle mass, or nutritional status, or are non- or non-. According to the National Kidney Foundation, irrespective of diagnosis, the stage of the disease is based on the level of kidney function: Stage Description GFR(mL/min/1.73 m(2)) 1 Kidney damage with normal or decreased GFR 90 2 Kidney damage with mild decrease in GFR 60-89 3 Moderate decrease in GFR 30-59 4 Severe decrease in GFR 15-29 5 Kidney failure <15 (or dialysis) 20 Desirable <150 Borderline high 150-199 High 200-499 Very High >500 21 Desirable <200 Borderline high 200-239 High >239 22 Low <40 Desirable: 40-60 High: >60 23 Serum levels of PSA measured using the [employer] DXI Hybritech immunoassay should not be interpreted as absolute evidence of the presence or absence of disease. The PSA value should be used in conjunction with other pertinent clinical diagnostic procedures. The values obtained with different assay methods or kits cannot be used interchangeably. 24 Because ethnic data is not always readily available, this report includes an eGFR for both -Americans and non- Americans. The National Kidney Disease Education Program (NKDEP) does not endorse the use of the MDRD equation for patients that are not between the ages of 18 and 70, are , have extremes of body size, muscle mass, or nutritional status, or are non- or non-. According to the National Kidney Foundation, irrespective of diagnosis, the stage of the disease is based on the level of kidney function: Stage Description GFR(mL/min/1.73 m(2)) 1 Kidney damage with normal or decreased GFR 90 2 Kidney damage with mild decrease in GFR 60-89 3 Moderate decrease in GFR 30-59 4 Severe decrease in GFR 15-29 5 Kidney failure <15 (or dialysis) 25 HDL Interpretation: Undesirable: High Risk: Less than 40 mg/dL Desirable: Low Risk: Greater than 60 mg/dL 26 LDL Interpretation: Low Risk Optimal Level: LDL Less than 100 mg/dL Near or Above Optimal: LDL 100-129 mg/dL Borderline High Risk: LDL 130-159 mg/dL High Risk: LDL 160-189 mg/dL Very High Risk: LDL Greater than 189 mg/dL 27 CHOLESTEROL INTERPRETATION: Desirable: Less than 200 MG/DL Borderline-High Risk: 200-239 MG/DL High-Risk: 240 MG/DL and over 28 HDL INTERPRETATION: Undesirable: High Risk: Less than 40 MG/DL Desirable: Low Risk: Greater than 60 MG/DL 29 LDL INTERPRETATION: Low Risk Optimal Level: LDL Less than 100 MG/DL Near or Above Optimal: LDL 100-129 MG/DL Borderline High Risk: LDL 130-159 MG/DL High Risk: LDL 160-189 MG/DL Very High Risk: LDL Greater than 189 MG/DL 30 Anion gap measurement may be of limited value in the presence of any alkalosis, especially in a combined acid base disorder. . 31 Note change in reference range as of 03/19/08. The change was based on recommendations from the [place] [employer]. 32 Please note change in reference range effective 08 . 33 CHOLESTEROL INTERPRETATION: Desirable: Less than 200 MG/DL Borderline-High Risk: 200-239 MG/DL High-Risk: 240 MG/DL and over 34 HDL INTERPRETATION: Undesirable: High Risk: Less than 40 MG/DL Desirable: Low Risk: Greater than 60 MG/DL 35 LDL INTERPRETATION: Low Risk Optimal Level: LDL Less than 100 MG/DL Near or Above Optimal: LDL 100-129 MG/DL Borderline High Risk: LDL 130-159 MG/DL High Risk: LDL 160-189 MG/DL Very High Risk: LDL Greater than 189 MG/DL 36 THERAPEUTIC TARGET FOR THE TREATMENT OF DIABETES MELLITUS PATIENTS IS <7% HBA1C, AND IN SELECTIVE PATIENTS <6.0%. PLEASE REFER TO [employer] [employer] DIABETIC CARE GUIDELINES FOR FURTHER INFORMATION. 37 FASTING 38 CHOLESTEROL INTERPRETATION: Desirable: Less than 200 MG/DL Borderline-High Risk: 200-239 MG/DL High-Risk: 240 MG/DL and over 39 HDL INTERPRETATION: Undesirable: High Risk: Less than 40 MG/DL Desirable: Low Risk: Greater than 60 MG/DL 40 LDL INTERPRETATION: Low Risk Optimal Level: LDL Less than 100 MG/DL Near or Above Optimal: LDL 100-129 MG/DL Borderline High Risk: LDL 130-159 MG/DL High Risk: LDL 160-189 MG/DL Very High Risk: LDL Greater than 189 MG/DL 41 THERAPEUTIC TARGET FOR THE TREATMENT OF DIABETES MELLITUS PATIENTS IS <7% HBA1C, AND IN SELECTIVE PATIENTS <6.0%. PLEASE REFER TO [employer] DIABETIC CARE GUIDELINES FOR FURTHER INFORMATION. 42 Classification: Desirable . 43 Classification: Low . 44 CALCULATED LDL APPROXIMATES THE VALUE OF A DIRECT LDL MEASUREMENT. Classification: Optimal Level . 45 Anion gap measurement may be of limited value in the presence of any alkalosis, especially in a combined acid base disorder. . 46 THERAPEUTIC TARGET FOR THE TREATMENT OF DIABETES MELLITUS PATIENTS IS <7% HBA1C, AND IN SELECTIVE PATIENTS <6.0%. PLEASE REFER TO [employer] DIABETIC CARE GUIDELINES FOR FURTHER INFORMATION. 47 Anion gap measurement may be of limited value in the presence of any alkalosis, especially in a combined acid base disorder. . 48 Classification: Desirable . 49 Classification: Low . 50 CALCULATED LDL APPROXIMATES THE VALUE OF A DIRECT LDL MEASUREMENT. Classification: Optimal Level . 51 TYSON VALUE=2.00 ( OF 05/15/06) Recommended INR for Patients on Oral Anticoagulants Prophylaxis 2.0 - 3.0 Treatment of thrombosis 2.0 - 3.0 Prevention of embolism 2.0 - 3.0 Prevention of embolism from prosthetic heart valves 2.5 - 3.5 52 Anion gap measurement may be of limited value in the presence of any alkalosis, especially in a combined acid base disorder. . 53 TYSON VALUE=2.00 ( OF 05/15/06) Recommended INR for Patients on Oral Anticoagulants Prophylaxis 2.0 - 3.0 Treatment of thrombosis 2.0 - 3.0 Prevention of embolism 2.0 - 3.0 Prevention of embolism from prosthetic heart valves 2.5 - 3.5 54 Please send report to 55 . 56 INTERNATIONAL NORMALIZED RATIO(INR) INDICATIONS INR RANGE PATIENTS NOT ON ANTICOAGULANT THERAPY * DEEP VENOUS THROMBOSIS 2.0-3.0 PULMONARY EMBOLISM 2.0-3.0 ATRIAL FIBRILLATION 2.0-3.0 PROPHYLAXIS: 2.0-3.0 HIGH-RISK SURGERY TISSUE HEART VALVES ATRIAL FIBRILLATION ACUTE MYOCARDIAL INFARCTION VALVULAR HEART DISEASE MECHANICAL PROSTHETIC VALVE 2.5-3.5 * USE OF INR VALUES SHOULD BE LIMITED TO PATIENTS WHO ARE ON STABLE ORAL ANTICOAGULANT THERAPY. AN INR ABOVE 5.0-5.5 APPEARS TO BE ASSOCIATED WITH AN UNACCEPTABLY HIGH RISK OF BLEEDING. 57 TYSON VALUE=2.00 ( OF 05/15/06) Recommended INR for Patients on Oral Anticoagulants Prophylaxis 2.0 - 3.0 Treatment of thrombosis 2.0 - 3.0 Prevention of embolism 2.0 - 3.0 Prevention of embolism from prosthetic heart valves 2.5 - 3.5 58 TYSON VALUE=2.00 ( OF 05/15/06) Recommended INR for Patients on Oral Anticoagulants Prophylaxis 2.0 - 3.0 Treatment of thrombosis 2.0 - 3.0 Prevention of embolism 2.0 - 3.0 Prevention of embolism from prosthetic heart valves 2.5 - 3.5 59 Classification: Desirable . 60 Classification: Low . 61 CALCULATED LDL APPROXIMATES THE VALUE OF A DIRECT LDL MEASUREMENT. Classification: Optimal Level . 62 THERAPEUTIC TARGET FOR THE TREATMENT OF DIABETES MELLITUS PATIENTS IS <7% HBA1C, AND IN SELECTIVE PATIENTS <6.0%. PLEASE REFER TO [employer] DIABETIC CARE GUIDELINES FOR FURTHER INFORMATION. 63 THERAPEUTIC TARGET FOR THE TREATMENT OF DIABETES MELLITUS PATIENTS IS <7% HBA1C, AND IN SELECTIVE PATIENTS <6.0%. PLEASE REFER TO [employer] DIABETIC CARE GUIDELINES FOR FURTHER INFORMATION. 64 FASTING 65 Classification: Borderline High . 66 Classification: Low . 67 Anion gap measurement may be of limited value in the presence of any alkalosis, especially in a combined acid base disorder. . Procedures Date CPT Code Description Status 09/10/2017 27755 EKG, at Least 12 Leads w/Interpretation and Report Completed 01/24/2016 64892 Nebulizer Treatment Completed 09/02/2015 68838 Spirometry Completed 09/02/2015 51961 EKG, at Least 12 Leads w/Interpretation and Report Completed 01/24/2007 91666 Spirometry Completed Encounters Type Date Location Provider CPT E/M Dx Office Visit 08/03/2017 4:30p Main Office MISTY Monson 17180 E11.65 J44.1 Office Visit 05/03/2017 3:45p Main Office MISTY Monson 63861 E11.65 Office Visit 03/23/2017 4:15p Main Office MISTY Monson 81310 Z00.00 Office Visit 03/17/2016 9:45a Main Office Reyna Morales, [employer]ER-C 52771 I26.99 I82.431 Office Visit 03/03/2016 10:45a Main Office Reyna Morales, [employer] ENGINEER-C 48842 I26.99 I82.431 Office Visit 02/11/2016 9:30a Main Office Reyna Morales, [employer] ENGINEER-C 58046 I26.99 I82.431 Office Visit 02/04/2016 10:30a Main Office Reyna Morales, [employer] ENGINEER-C 17055 I26.99 I82.431 Z72.0 Office Visit 01/24/2016 11:15a Main Office Reyna Morales, [employer]WORK [employer] ENGINEER-C 00835 J44.1 Office Visit 10/01/2015 4:30p Main Office Reyna Morales, [employer] ENGINEER-C 94473 J44.9 J30.9 Office Visit 09/02/2015 4:00p Main Office Reyna Morales, [employer] ENGINEER-C 59457 J44.9 E78.2 F17.218 Office Visit 03/27/2013 1:30p Main Office Reyna Morales, [employer] ENGINEER-C 71431 V70.0 V72.62 459.9 Office Visit 03/17/2011 11:00a Main Office Reyna Morales, [employer]WORK [employer] ENGINEER-C 53180 459.9 Office Visit 02/23/2011 4:00p Main Office Reyna Morales, [employer] ENGINEER-C 27500 459.9 V72.84 Office Visit 02/23/2011 5:04p Main Office Coreen Cullen M.D. 55187 V70.0 Office Visit 04/18/2010 3:00p Main Office Shawntessie Morales, [employer] ENGINEER-C 72745 528.3 Office Visit 03/15/2010 8:00a Main Office Shawntessie Morales, NETWORK FIREWALL ENGINEER-C 74637 V70.0 272.2 305.1 Office Visit 09/09/2009 9:00a Main Office Camil[place]tessie Morales, [employer]WORK FI[employer] ENGINEER-C 96604 461.8 Office Visit 03/09/2009 8:00a Main Office MISTY Monson 20139 V70.0 Office Visit 09/22/2008 4:45p Main Office MISTY Monson 78442 780.60 465.9 Office Visit 03/26/2008 4:30p Main Office MISTY Monson 64136 459.9 Office Visit 06/26/2007 1:00p Main Office Coreen Cullen M.D. 72928 272.2 305.1 459.9 790.6 Office Visit 03/18/2007 10:45a Main Office Coreen Cullen M.D. 54186 272.2 305.1 459.9 Office Visit 02/12/2007 2:30p Main Office Coreen Cullen M.D. 54824 272.2 443.9 305.1 Office Visit 01/24/2007 11:15a Main Office Coreen Cullen M.D. 18943 443.9 272.2 305.1 790.6 Office Visit 12/13/2006 11:00a Main Office Coreen Cullen M.D. 18551 443.9 272.2 305.1 Office Visit 11/28/2006 10:30a Main Office Coreen Cullen M.D. 15060 272.2 443.9 790.6 Office Visit 10/24/2006 11:15a Main Office Coreen Cullen M.D. 91498 724.5 782.0 729.5 459.9 Plan of Care Future Appointment(s):11/01/2017 4:30 pm - MISTY Monson at Main Psfykx2209/10/2017 - PROSPER Monson-[id number] Encounter for other preprocedural examinationComments:MEDICALLY STABLE FOR PLANNED PROCEDURE, HIGHER RISK FOR AGE GIVEN TOBACCO USE, DIABETES AND [id number] Tobacco useComments:interested in starting Chantix to help with smoking cessation, script [id number] Unspecified disorder of circulatory system
--- OUTSIDE RECORDS SUMMARY | 2017-10-02 17:49 | XMS REPORT ---
:1960 External Reference #:[id number] Author Organization [facility] Address [address] [place] [address] Phone [phone] Care Team Providers Name Role Phone MISTY Monson Care Team Information Control Center Operator Unavailable Payers Type Date Identification Numbers Payment Provider Subscriber Commercial Expires: Policy Number: Oscar ROSSI Yady Layton 2007 [id number] Group Name: [place] [address] PayID: [id number] SANDRA Arrieta [id number] Medigap Part B Expires: 2015 Policy Number: Oscar FLO Yady Layton [id number] Group Name: [employer] [address] PayID: [id number] SANDRA Arrieta [phone] Medigap Part B Effective: Policy Number: [place] FLO Yady Calin 2015 [id number] Expires: 2016 Group Name: [employer] Plus Silver 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 He is eating some fruits and vegetables, not regularly Pets 2 dogs Pets 2 cats Occupation Currently Working [employer] in [place] Cigarette Use current cigarette smoker down to [...] Tablets 0.5mg X 60tab one by mouth Shawnti Starting Month 2017 11 & s twice a day, Demario Morales Carlos 1 mg X 42 start per PHOTO TECHNICIAN-C package directions Ruben Contour 08/03/ Active Strips 100un test blood E11.65 [place] Next Blood 2018 its sugar twice Demario Morales Glucose Test a day & PHOTO TECHNICIAN-C as needed Metformin HCL 05/03/ Active Tablets ER 500mg 30tab 1 po daily E11.65 Shawnti ER (Mod) 2017 24HR s Demario Morales PHOTO TECHNICIAN-C Breo Ellipta 02/22/ Active Aerosol 200-25mcg 60uni 1 puff daily [place] 2016 /Inh ts for Demario Morales, breathing PHOTO TECHNICIAN-C Nebulizer 04/10/ Active Kit 2unit use with Shawnti Kit/Tubing/[place] 2015 s albuterol as Demario Morales thpiece needed for PHOTO TECHNICIAN-C breathing Proair HFA 02/14/ Active Aerosol 108(90Bas 8.500 1-2 puffs J44.9 [place] 2015 e) gm every 4-6 Demario Morales, mcg/Act hours as PHOTO TECHNICIAN-C needed for wheeze or shortness of breath T.E.D. 02/10/ Active Misc 3unit Wear Daily I82.431 Shawnti Anti-Embolism 2015 s On The Right Demario Morales Stockings Leg PHOTO TECHNICIAN-C Thigh High Albuterol 01/23/ Active Nebulizer (2.5mg/3M 75uni Inhale The J44.1 Shawnti Sulfate 2015 L) 0.083% ts Contents Of Demario Morales, One Vial Via PHOTO TECHNICIAN-C Nebulizer Every 4 Hours as Needed Atorvastatin 06/30/ Active Tablets 20mg 90tab take one Dinorai Calcium 2012 s tablet by Demario Morales, mouth every PHOTO TECHNICIAN-C day for cholesterol Vitamin C 03/15/ Active Tablets 1000mg 1 po daily Reyna 2009 Demario Morales, PHOTO TECHNICIAN-C Xarelto / Active Tablets 20mg 60tab take one Tinonti s tablet by Demario Morales, mouth daily PHOTO TECHNICIAN-C Nicotrol 02/03/ Hx Inhaler 10mg 168un puff 20 Z72.0 Reyna 2015 - its minutes Demario Morales, 05/04/ every 2-3 PHOTO TECHNICIAN-C 2017 hours daily for 12 weeks; then gradually wean down over 12 weeks Prednisone 01/23/ Hx Tablets 50mg 5tabs one pill by J44.1 Reyna 2015 - mouth daily Demario Morales, 02/02/ for 5 days PHOTO TECHNICIAN-C 2015 for breathing Advair Diskus 10/28/ Hx Aerosol 250-50mcg 60uni use 1 J44.9 [place] 2015 - /Dose ts inhalation Demario Morales, 05/04/ two times a PHOTO TECHNICIAN-C 2016 day Nasonex 09/30/ Hx Suspension 50mcg/Act 17gm 2 sprays J30.9 Reyna 2015 - each nostril Demario Morales, 05/04/ daily for PHOTO TECHNICIAN-C 2016 rhinitis Dulera 09/02/ Hx Aerosol 200-5mcg/ 8.800 2 puff2 J44.9 Reyna 2015 - Act gm twice a day Demario Morales, 10/28/ for PHOTO TECHNICIAN-C 2015 breathing Proventil HFA 09/02/ Hx Aerosol 108(90Bas 6.7un Inhale Two J44.9 Dinorai 2015 - e) its Puffs By Demario Morales, 02/14/ mcg/Act Mouth Every PHOTO TECHNICIAN-C 2015 4 Hours as Needed For Cough Wheeze Or For Shortness Of Breath Lipitor 06/12/ Hx Tablets 20mg 90tab 1 po qd for Shawnti 2012 - s cholesterol Yosef. Andrew, 06/30/ [facility]- 2012 Clobetasol 03/27/ Hx Foam 0.05% 50gm apply golf Shawnti Propionate 2012 - ball sized Demario Morales, 09/02/ amount to [facility] 2016 scalp qhs for itching and dermatitis Atorvastatin 06/07/ Hx Tablets 40mg 45tab 1/2 po daily Shawnti Calcium 2011 - s for Yosef. Andrew, 06/12/ cholesterol [facility]- 2012 Clindamycin 04/18/ Hx Capsules 150mg 30cap 1 po tid for 528.3 Shawnti HCL 2009 - s 10 days for Demario Morales, 02/23/ dental [facility]- 2010 infection Plavix 03/15/ Hx Tablets 75mg 1 po qd Shawnti 2009 - R. Andrew, 03/23/ [facility]- 2016 Aspirin 03/15/ Hx Tablets DR 81mg 1 po qd Shawnti 2009 - R. Andrew, 03/23/ [facility] 2017 Keflex 09/09/ Hx Capsules 500mg 40cap 1 po qid for 461.8 Shawnti 2009 - s 10 days Yosef. Andrew, 09/19/ [facility]- 2010 Lipitor 06/04/ Hx Tablets 40mg 112ta 1/2 po daily Shawnti 2008 - for Yosef. Andrew, 06/07/ cholesterol [facility]- 2012 Doxycycline 09/22/ Hx Capsules 100mg 20cap 1 po bid for 780.60 Shawnti Hyclate 2008 - s infection R. Andrew, 03/15/ [facility]- 2010 Lipitor 06/26/ Hx Tablets 20mg 56tab 1 PO qd Coreen 2007 - s P. 06/04/ Blegen, 2009 M.DKeisha Simvastatin 03/18/ Hx Tablets 40mg 30tab one po qhs Coreen 2007 - s P. 06/18/ Blegen, 2007 M.DKeisha Toprol XL 01/31/ Hx Tablets 25mg 15tab 1/2 po qd Coreen 2007 - s P. 03/15/ Blegen, 2009 Amaris Chantix 12/13/ Hx 0.5mg 1Pack Use as Coreen Starter Pack 2007 - Directed- P. 07/28/ 0.5 MG qd X Blegen, 2010 3 [...] Hx Tablets 50mg 30tab 1 tab by Shawnti 0000 - s mouth every R. Storm, 03/23/ 4 hours as PHOTO TECHNICIAN-C 2017 needed for pain. Colace Clear / Hx Capsules 50mg Take one Unknown 0000 - capsule by mouth every 2016 day as needed. Immunizations CPT Code Status Date Vaccine Lot # [id number] Refused 01/24/2016 Influenza Virus Vaccine, Quadrivalent, 3 [...] Test Date Test Result H/L Range Note Order 09/10/2017 EKG <pending> Laboratory test 08/07/2017 Hemoglobin A1c 7.9 % High 4.0-5.6 1 finding Laboratory test 08/07/2017 Inr 1.37 High 0.77-1.02 finding Partial Thrombo Time PTT 36.5 seconds High [...] Egfr Non- 89.6 >60 Egfr 115.2 >60 2 CBC Auto Diff 08/07/2017 White Blood Count [...] High 5-6 Urine Blood neg Neg Specific Beaver 1.015 1.01-1.02 Urine Ketones neg Neg Urine [...] Egfr Non- 93.2 >60 Egfr 119.9 >60 3 Lipid Profile (Trig/Chol/HDL) 03/23/2017 Triglycerides 272 mg/dL 4 Cholesterol 129 mg/dL 5 HDL Cholesterol 23.1 mg/dL 6 LDL Cholesterol 52 mg/dL 7 Laboratory test finding 03/23/2017 TSH (Thyroid Stim Horm) 1.02 mcIU/mL 0.34-5.60 8 Hemoglobin A1c (Glyco HGB) 7.5 % High Less than 6.0 9 CBC Auto Diff 01/31/2016 White Blood Count [...] Egfr Non- 82.6 >60 Egfr 106.2 >60 10 Laboratory test finding 01/31/2016 C Reactive Protein 41.69 mg/L High &lt ; 5.00 11 Inr/Protime 01/31/2016 Inr 0.97 0.89-1.11 Laboratory test finding 01/31/2016 Lactic Acid 1.5 mmol/L 0.5-2.0 12 Blood Culture SEE RESULT BELOW 13 CBC Auto Diff 09/02/2015 White Blood Count [...] Egfr Non- 74.4 >60 Egfr 95.7 >60 14 Laboratory test finding 09/02/2015 TSH (Thyroid Stim Horm) 0.91 ?IU/mL 0.34-5.60 Lipid Profile 09/02/2015 Triglycerides 478 mg/dL 15 (Trig/Chol/HDL) Cholesterol 134 mg/dL 16 HDL Cholesterol 21.6 mg/dL 17 Laboratory test finding 03/27/2013 TSH (Thyroid Stimulating 0.78 miu/mL 0.34-5.60 Horm) PSA Screening 0.8 ng/mL 0-4.0 18 Urine DIP 03/27/2013 Leukocytes neg Neg Urine Nitrites neg Neg Urine pH 7 High 5-6 Total Protein, Urine neg Neg Urine Glucose norm Norm Urine Ketones neg Neg Urobilinogen norm Norm Urine Bilirubin neg Neg Urine Blood neg Neg Specific Beaver 1.01 1.01-1.02 CBC No Diff 03/27/2013 White [...] Egfr Non- 70.3 >60 Egfr 90.4 >60 19 Lipid Profile (Trig/Chol/HDL) 03/27/2013 Triglycerides 311 mg/dL High 40- 200 Cholesterol 146 mg/dL Less than 200 HDL Cholesterol 24 mg/dL Low 40-60 20 Cholesterol/HDL Ratio 6.1 Average High 1-4.44 LDL Cholesterol 59.8 Less Than 100 21 Urine DIP 02/23/2011 Leukocytes neg Neg Urine Nitrites neg Neg Urine pH 6 5-6 Total Protein, Urine trace Neg Urine Glucose norm Norm Urine Ketones neg Neg Urobilinogen norm Norm Urine Bilirubin neg Neg Urine Blood trace Neg Specific Beaver 1.010 1.01-1.02 Lipid Profile (Trig/Chol/HDL) 03/15/2010 Triglyceride 184 mg/dL 40-200 Cholesterol 138 mg/dL Less Than 200 22 High Density Lipoprotein 23 mg/dL Low 40-60 23 Cholesterol/HDL Ratio 6.00 AVERAGE High 1-4.97 Low Density Lipoprotein 78 mg/dL Less Than 100 24 Statin 03/15/2010 Ast (Sgot) 59 U/L High 12-42 Alt (SGPT) 24 U/L 17-63 Urine DIP 03/15/2010 Leukocytes NEG Neg Urine Nitrites NEG Neg Urine pH 6 5-6 Total Protein, Urine NEG Neg Urine Glucose NORM Norm Urine Ketones NEG Neg Urobilinogen NORM Norm Urine Bilirubin NEG Neg Urine Blood NEG Neg Specific Beaver 1.000 Low 1.01-1.02 Urine DIP 03/09/2009 Leukocytes NEG Neg Urine Nitrites NEG Neg Urine pH 5 5-6 Total Protein, Urine NEG Neg Urine Glucose NORM Norm Urine Ketones NEG Neg Urobilinogen NORM Norm Urine Bilirubin NEG Neg Urine Blood NEG Neg Specific Beaver 1.005 Low 1.01-1.02 CBC 09/22/2008 WBC 14.2 [...] mmol/L 22-32 Anion Gap 6.0 mmol/L 2-11 25 Glucose 89 mg/dL 70-100 26 BUN 8 mg/dL 6-24 Creatinine 0.90 mg/dL 0.50-1.40 One Over Creatinine 1.10 BUN/Creatinine Ratio 8.9 8-20 Calcium 9.4 mg/dL 8.1-9.9 27 Total Protein 6.9 GM/DL 6.2-8.1 Albumin 3.9 GM/DL 3.6-5.4 Globulin 3.0 GM/DL 2-4 Albumin/Globulin Ratio 1.3 1-3 Bilirubin Total 0.5 mg/dL 0.4-1.5 Alkaline Phosphatase 103 U/L 39-117 Alt (SGPT) 27 U/L 17-63 Ast (Sgot) 24 U/L 12-42 Lipid Profile (Trig/Chol/HDL) 07/13/2008 Triglyceride 247 mg/dL High 40- 200 Cholesterol 162 mg/dL Less Than 200 28 High Density Lipoprotein 32 mg/dL Low 40-60 29 Cholesterol/HDL Ratio 5.06 AVERAGE High 1-4.97 Low Density Lipoprotein 81 mg/dL Less Than 100 30 Laboratory test finding 07/13/2008 Hemoglobin A1c 6.2 % High <6.0 31 Statin 11/16/2007 Ast (Sgot) 28 U/L 12-42 32 Alt (SGPT) 28 U/L 17-63 32 Lipid Profile 11/16/2007 Cholesterol/HDL Ratio 8.06 AVERAGE High 1-4.97 32 (Trig/Chol/HDL) Cholesterol 145 mg/dL Less Than 200 32, 33 Triglyceride 142 mg/dL 40-200 32 High Density Lipoprotein 18 mg/dL Low 40-60 32, 34 Low Density Lipoprotein 99 mg/dL Less Than 100 32, 35 Laboratory test finding 11/16/2007 CPK (Creatine Kinase) 176 U/L 0-200 32 Hemoglobin A1c 6.4 % High <6.0 32, 36 Laboratory test finding 09/04/2007 CPK (Creatine Kinase) 206 U/L High 0- 200 Statin 08/10/2007 Ast (Sgot) 28 U/L 12-42 Alt (SGPT) 31 U/L 17-63 Lipid Profile 08/10/2007 Cholesterol/HDL Ratio 5.33 AVERAGE High 1-4.97 (Trig/Chol/HDL) Cholesterol 128 mg/dL Less Than 200 37 Triglyceride 110 mg/dL 40-200 High Density Lipoprotein 24 mg/dL Low 40-60 38 Low Density Lipoprotein 82 mg/dL Less Than 100 39 Laboratory test finding 08/10/2007 CPK (Creatine Kinase) 208 U/L High 0- 200 Comp Metabolic Panel 06/26/2007 One Over Creatinine 0.83 Anion Gap 7.0 mmol/L 2-11 40 Albumin/Globulin Ratio 1.1 1-3 Albumin 3.9 GM/DL [...] 0-200 Hemoglobin A1c 6.5 % High <6.0 41 Magnesium 2.1 mg/dL 1.7-2.6 Comp Metabolic Panel 04/20/2007 One Over Creatinine 1.00 Anion Gap 5.0 mmol/L 2-11 42 Albumin/Globulin Ratio 1.0 1-3 Albumin 3.6 GM/DL [...] (Trig/Chol/HDL) Cholesterol 128 mg/dL Less Than 200 43 Triglyceride 334 mg/dL High 40-200 High Density Lipoprotein 19 mg/dL Low 40-60 44 Low Density Lipoprotein 42 mg/dL Less Than 100 45 Protime 04/20/2007 Inr 0.89 46 Protime 11.3 10.9-13.1 Comp Metabolic Panel 03/18/2007 One Over Creatinine 1.00 Anion Gap 8.0 mmol/L 2-11 47 Albumin/Globulin Ratio 1.1 1-3 Albumin 3.7 GM/DL [...] 1.0 mg/dL 0.5-1.4 Protime 03/18/2007 Inr 3.36 48 Protime 22.0 High 10.9-13.1 PT (On Therapy) 03/04/2007 PT (On Therapy) 28.9 seconds High 11.9-13.9 49 , 50 Inr 3.0 49, 51 Protime 02/21/2007 Inr 1.71 52 Protime 15.7 High 10.9-13.1 Protime 02/14/2007 Inr 2.08 53 Protime 17.3 High 10.9-13.1 CBC With Manual [...] neg Neg Urine Blood neg Neg Specific Beaver n/a Low 1.01-1.02 Statin 01/17/2007 Ast (Sgot) 25 U/L 12-42 Alt (SGPT) 26 U/L 17-63 Lipid Profile 01/17/2007 Cholesterol/HDL Ratio 6.30 AVERAGE High 1-4.97 (Trig/Chol/HDL) Cholesterol 145 mg/dL Less Than 200 54 Triglyceride 224 mg/dL High 40-200 High Density Lipoprotein 23 mg/dL Low 40-60 55 Low Density Lipoprotein 77 mg/dL Less Than 100 56 Laboratory test finding 01/17/2007 Hemoglobin A1c 6.2 % High <6.0 57 CPK (Creatine Kinase) 124 U/L 0-200 Laboratory test finding 11/28/2006 Hemoglobin A1c 6.3 % High <6.0 58 TSH 0.83 MIU/ML 0.34-5.60 Lipid Profile 10/26/2006 Cholesterol/HDL Ratio 11.20 AVERAGE High 1-4.97 59 (Trig/Chol/HDL) Cholesterol 224 mg/dL High Less Than 200 59, 60 Triglyceride 427 mg/dL High 40-200 59 High Density Lipoprotein 20 mg/dL Low 40-60 59, 61 Comp Metabolic Panel 10/26/2006 One Over Creatinine 1.11 59 Anion Gap 10.0 mmol/L 2-11 59, 62 Albumin/Globulin Ratio 1.2 1-3 59 Albumin 3.8 GM/DL 3.6-5.4 59 Alkaline Phosphatase 113 U/L 39-117 59 Alt (SGPT) 32 U/L 17-63 59 Ast (Sgot) 26 U/L 12-42 59 BUN 17 mg/dL 6-24 59 Calcium 9.3 mg/dL 8.7-10.2 59 Chloride 102 mmol/L 101-111 59 Co2 (Carbon Dioxide) 25.0 mmol/L 22-32 59 Globulin 3.2 GM/DL 2-4 59 Glucose 116 mg/dL High 70-105 59 Potassium 4.1 mmol/L 3.5-5.0 59 Sodium 137 mmol/L 135-145 59 Bilirubin Total 0.5 mg/dL 0.4-1.5 59 Total Protein 7.0 GM/DL 6.2-8.1 59 BUN/Creatinine Ratio 18.9 8-20 59 Creatinine 0.9 mg/dL 0.5-1.4 59 CBC With Electronic Diff 10/26/2006 White Blood Count 10.5 CUMM 4.8-10.8 59 Abs Basophils 0 0-0.2 59 Abs Eosinophils 0.2 0-0.6 59 Absolute Neutrophil Count 6.0 1.5-7.7 59 Abs Lymphs 2.8 1.0-4.8 59 Abs Mononuclear 1.4 High 0-0.8 59 Basophil % 0.3 % 0-2 59 Hematocrit 43 % 42-52 59 Hemoglobin 14.9 g/dL 14.0-18.0 59 Eosinophil % 1.8 % 0-6 59 Gran % 57.4 % 38-83 59 Lymph % 26.9 % 20-45 59 Mean Corpuscular HGB Cone 35 g/dL 32-36 59 Mean Corpuscular Hemoglob 31 pg 27-31 59 Mean Corpuscular Volume 90 um3 80-94 59 Mean Platelet Volume 9.1 um3 7.4-10.4 59 Mononuclear % 13.6 % High 1-9 59 Platelet Count 233 CUMM 150-450 59 Red Cell Count 4.76 CUMM 4.6-6.2 59 Redcell Distribution WDTH 14 % 10.5-15 59 1 Therapeutic target for the treatment of diabetes mellitus patients is <7% HBA1C, and in selective patients <6.0%. Please refer to [place] Diabetes Association diabetic care guidelines for further information. 2 Because ethnic data is not always readily [...] 15-29 5 Kidney failure <15 (or dialysis) 3 Because ethnic data is not always readily [...] 15-29 5 Kidney failure <15 (or dialysis) 4 Desirable <150 Borderline high 150-199 High 200-499 Very High >500 5 Desirable <200 Borderline high 200-239 High >239 6 Low <40 Desirable: 40-60 High: >60 7 Desirable: <100 mg/dL Near Optimal: 100-129 mg/dL Borderline High: 130-159 mg/dL High: 160-189 mg/dL Very High: >189 mg/dL 8 [id number] 9 Therapeutic target for the treatment of diabetes Mellitus patients is <7% HBA1C, and in selective patients <6.0%.Please refer to [place] Diabetes Association Diabetic care guidelines for further information. 10 Because ethnic data is not always readily [...] 15-29 5 Kidney failure <15 (or dialysis) 11 Acute inflammation: >10.00 12 [facility] Severe Sepsis and Septic Shock Management Bundle Measure requires all lactic acids initially measuring >2.0 mmol/L be repeated. 13 SEE RESULT BELOW Name: YADY LAYTON : [address]: Brigido Pressley MD Acct: [id number] Unit: [id number] AGE: 56 Location: [place] [address] Re01/31/16 Dis: 02/01/16 SEX: M Status: DIS Mitchell SPEC: [id number] HEYDI: 01/31/[address] [facility] [address]: Alejo Page DO REQ: [id number] RECD: 01/31/16 STATUS: BRANDT ARMENDARIZ DR: Coreen Cullen MD _ SOURCE: BLOOD,VENO SPDESC: ORDERED: Blood Cult COMMENTS: Verbal to RENY BENAVIDEZ/DR. CULLEN by [id number] at 1044 on 02/04/16. Results read back accurately. Procedure Result Reported Site Aerobic Culture Bottle Final 02/06/16- 0752 ML Aerobic Bottle Gram Stain Gram Positive Coccobacilli Organism 1 CORYNEBACTERIUM SPECIES - Sensitivity not performed; probable contaminant. If further testing is required, please call microbiology laboratory. Anaerobic Culture Bottle Final 02/05/16- 1806 ML No Growth Day 5 * ML - MAIN LAB ([facility]) . END OF REPORT * ML=Testing performed at Main Lab DEPARTMENT OF PATHOLOGY, [address] [place] [address] M[address] Director [facility] # [id number] 14 Because ethnic data is not always readily [...] 15-29 5 Kidney failure <15 (or dialysis) 15 Desirable <150 Borderline high 150-199 High 200-499 Very High >500 16 Desirable <200 Borderline high 200-239 High >239 17 Low <40 Desirable: 40-60 High: >60 18 Serum levels of PSA measured using the Robin Whiting DXI Hybritech immunoassay should not be interpreted as absolute evidence of the presence or absence of disease. The PSA value should be used in conjunction with other pertinent clinical diagnostic procedures. The values obtained with different assay methods or kits cannot be used interchangeably. 19 Because ethnic data is not always [...] 5 Kidney failure <15 (or dialysis) 20 HDL Interpretation: Undesirable: High Risk: Less than 40 mg/dL Desirable: Low Risk: Greater than 60 mg/dL 21 LDL Interpretation: Low Risk Optimal Level: LDL Less than 100 mg/dL Near or Above Optimal: LDL 100-129 mg/dL Borderline High Risk: LDL 130-159 mg/dL High Risk: LDL 160-189 mg/dL Very High Risk: LDL Greater than 189 mg/dL 22 CHOLESTEROL INTERPRETATION: Desirable: Less than 200 MG/DL Borderline-High Risk: 200-239 MG/DL High-Risk: 240 MG/DL and over 23 HDL INTERPRETATION: Undesirable: High Risk: Less than 40 MG/DL Desirable: Low Risk: Greater than 60 MG/DL 24 LDL INTERPRETATION: Low Risk Optimal Level: LDL Less than 100 MG/DL Near or Above Optimal: LDL 100-129 MG/DL Borderline High Risk: LDL 130-159 MG/DL High Risk: LDL 160-189 MG/DL Very High Risk: LDL Greater than 189 MG/DL 25 Anion gap measurement may be of limited value in the presence of any alkalosis, especially in a combined acid base disorder. . 26 Note change in reference range as of 03/19/08. The change was based on recommendations from the [place] Diabetes [employer]. 27 Please note change in reference range effective 08 . 28 CHOLESTEROL INTERPRETATION: Desirable: Less than 200 MG/DL Borderline-High Risk: 200-239 MG/DL High-Risk: 240 MG/DL and over 29 HDL INTERPRETATION: Undesirable: High Risk: Less than 40 MG/DL Desirable: Low Risk: Greater than 60 MG/DL 30 LDL INTERPRETATION: Low Risk Optimal Level: LDL Less than 100 MG/DL Near or Above Optimal: LDL 100-129 MG/DL Borderline High Risk: LDL 130-159 MG/DL High Risk: LDL 160-189 MG/DL Very High Risk: LDL Greater than 189 MG/DL 31 THERAPEUTIC TARGET FOR THE TREATMENT OF DIABETES MELLITUS PATIENTS IS <7% HBA1C, AND IN SELECTIVE PATIENTS <6.0%. PLEASE REFER TO [place] [employer]ATION DIABETIC CARE GUIDELINES FOR FURTHER INFORMATION. 32 FASTING 33 CHOLESTEROL INTERPRETATION: Desirable: Less than 200 [...] IN SELECTIVE PATIENTS <6.0%. PLEASE REFER TO [place] [employer] DIABETIC CARE GUIDELINES FOR FURTHER INFORMATION. 37 Classification: Desirable . 38 Classification: Low . 39 CALCULATED LDL APPROXIMATES THE VALUE OF A DIRECT LDL MEASUREMENT. Classification: Optimal Level . 40 Anion gap measurement may be of limited value in the presence of any alkalosis, especially in a combined acid base disorder. . 41 THERAPEUTIC TARGET FOR THE TREATMENT OF DIABETES MELLITUS PATIENTS IS <7% HBA1C, AND IN SELECTIVE PATIENTS <6.0%. PLEASE REFER TO [place] [employer] DIABETIC CARE GUIDELINES FOR FURTHER INFORMATION. 42 Anion gap measurement may be of limited value in the presence of any alkalosis, especially in a combined acid base disorder. . 43 Classification: Desirable . 44 Classification: Low . 45 CALCULATED LDL APPROXIMATES THE VALUE OF A DIRECT LDL MEASUREMENT. Classification: Optimal Level . 46 TYSON VALUE=2.00 ( OF 05/15/06) Recommended INR for Patients on Oral Anticoagulants Prophylaxis 2.0 - 3.0 Treatment of thrombosis 2.0 - 3.0 Prevention of embolism 2.0 - 3.0 Prevention of embolism from prosthetic heart valves 2.5 - 3.5 47 Anion gap measurement may be of limited value in the presence of any alkalosis, especially in a combined acid base disorder. . 48 TYSON VALUE=2.00 ( OF 05/15/06) Recommended INR for Patients on Oral Anticoagulants Prophylaxis 2.0 - 3.0 Treatment of thrombosis 2.0 - 3.0 Prevention of embolism 2.0 - 3.0 Prevention of embolism from prosthetic heart valves 2.5 - 3.5 49 Please send report to 50 . 51 INTERNATIONAL NORMALIZED RATIO(INR) INDICATIONS INR RANGE PATIENTS [...] WITH AN UNACCEPTABLY HIGH RISK OF BLEEDING. 52 TYSON VALUE=2.00 ( OF 05/15/06) Recommended INR for Patients on Oral Anticoagulants Prophylaxis 2.0 - 3.0 Treatment of thrombosis 2.0 - 3.0 Prevention of embolism 2.0 - 3.0 Prevention of embolism from prosthetic heart valves 2.5 - 3.5 53 TYSON VALUE=2.00 ( OF 05/15/06) Recommended INR for Patients on Oral Anticoagulants Prophylaxis 2.0 - 3.0 Treatment of thrombosis 2.0 - 3.0 Prevention of embolism 2.0 - 3.0 Prevention of embolism from prosthetic heart valves 2.5 - 3.5 54 Classification: Desirable . 55 Classification: Low . 56 CALCULATED LDL APPROXIMATES THE VALUE OF A DIRECT LDL MEASUREMENT. Classification: Optimal Level . 57 THERAPEUTIC TARGET FOR THE TREATMENT OF DIABETES MELLITUS PATIENTS IS <7% HBA1C, AND IN SELECTIVE PATIENTS <6.0%. PLEASE REFER TO [place] [employer] DIABETIC CARE GUIDELINES FOR FURTHER INFORMATION. 58 THERAPEUTIC TARGET FOR THE TREATMENT OF DIABETES MELLITUS PATIENTS IS <7% HBA1C, AND IN SELECTIVE PATIENTS <6.0%. PLEASE REFER TO [place] [employer] DIABETIC CARE GUIDELINES FOR FURTHER INFORMATION. 59 FASTING 60 Classification: Borderline High . 61 Classification: Low . 62 Anion gap measurement may be of limited value in the presence of any alkalosis, especially in a combined acid base disorder. . Procedures Date CPT Code Description Status 09/10/2017 72733 EKG, at Least 12 Leads w/Interpretation and Report Completed 01/24/2016 31882 Nebulizer Treatment Completed 09/02/2015 63793 Spirometry Completed 09/02/2015 83891 EKG, at Least 12 Leads w/Interpretation and Report Completed 01/24/2007 17535 Spirometry Completed Encounters Type Date Location Provider CPT E/M Dx Office Visit 05/03/2017 3:45p Main Office [place], PHOTO TECHNICIAN-C 30908 E11.65 Office Visit 03/23/2017 4:15p Main Office [place] Demario Morales, PHOTO TECHNICIAN-C 94734 Z00.00 Office Visit 03/17/2016 9:45a Main Office [place] Yosef. Andrew, PHOTO TECHNICIAN-C 84867 I26.99 I82.431 Office Visit 03/03/2016 10:45a Main Office [place] Yosef. Andrew, PHOTO TECHNICIAN-C 66727 I26.99 I82.431 Office Visit 02/11/2016 9:30a Main Office [place] Demario Morales, PHOTO TECHNICIAN-C 10184 I26.99 I82.431 Office Visit 02/04/2016 10:30a Main Office [place] Yosef. Andrew, PHOTO TECHNICIAN-C 65518 I26.99 I82.431 Z72.0 Office Visit 01/24/2016 11:15a Main Office [place] Demario Morales, PHOTO TECHNICIAN-C 64250 J44.1 Office Visit 10/01/2015 4:30p Main Office [place] Dem[place] Morales, PHOTO TECHNICIAN-C 28466 J44.9 J30.9 Office Visit 09/02/2015 4:00p Main Office [place] Yosef. Andrew, PHOTO TECHNICIAN-C 34791 J44.9 E78.2 F17.218 Office Visit 03/27/2013 1:30p Main Office [place] Yosef. Andrew, PHOTO TECHNICIAN-C 40131 V70.0 V72.62 459.9 Office Visit 03/17/2011 11:00a Main Office [place] Yosef. Andrew, PHOTO TECHNICIAN-C 87317 459.9 Office Visit 02/23/2011 5:04p Main Office Coreen Cullen M.D. 82667 V70.0 Office Visit 02/23/2011 4:00p Main Office Shawnti Yosef. Andrew, PHOTO TECHNICIAN-C [id number] 459.9 V72.84 Office Visit 04/18/2010 3:00p Main Office Reyna Morales, PHOTO TECHNICIAN-C 30098 528.3 Office Visit 03/15/2010 8:00a Main Office Reyna Morales PHOTO TECHNICIAN-C 73258 V70.0 272.2 305.1 Office Visit 09/09/2009 9:00a Main Office Reyna Morales, PHOTO TECHNICIAN-C 92766 461.8 Office Visit 03/09/2009 8:00a Main Office Reyna Morales, PHOTO TECHNICIAN-C 66987 V70.0 Office Visit 09/22/2008 4:45p Main Office Reyna Morales, PHOTO TECHNICIAN-C 56309 780.60 465.9 Office Visit 03/26/2008 4:30p Main Office Reyna Morales, PHOTO TECHNICIAN-C 18911 459.9 Office Visit 06/26/2007 1:00p Main Office Coreen Cullen M.D. 84161 272.2 305.1 459.9 790.6 Office Visit 03/18/2007 10:45a Main Office Coreen Cullen M.D. 58985 272.2 305.1 459.9 Office Visit 02/12/2007 2:30p Main Office Coreen Cullen M.D. 81694 272.2 443.9 305.1 Office Visit 01/24/2007 11:15a Main Office Coreen Cullen M.D. 51109 443.9 272.2 305.1 790.6 Office Visit 12/13/2006 11:00a Main Office Coreen Cullen M.D. 84565 443.9 272.2 305.1 Office Visit 11/28/2006 10:30a Main Office Coreen Cullen M.D. 04469 272.2 443.9 790.6 Office Visit 10/24/2006 11:15a Main Office Coreen Cullen M.D. 92544 724.5 782.0 729.5 459.9 Plan of Care Future Appointment(s):11/01/2017 4:30 pm - PROS[facility] Monson-C at [facility]4609/10/2017 - PROSPER Monson-[id number] Encounter for other preprocedural [id number] Tobacco useComments:interested in starting Chantix to help with smoking cessation, script [id number] Unspecified disorder of circulatory system
[2017-10-02] MEDS ORDERED: Albuterol 2.5 MG/3 ML NEB.SOL* (0.083%) INH ONE (17:50)
[2017-10-02] MEDS ORDERED: NS 0.9% 1000 ML* 1,000 ML IV ONE (17:50)
[2017-10-02 18:29] LABS: Urine Appearance Clear; Urine Blood Negative (Negative); Urine Color Yellow; Urine Ketones Negative (Negative); Urine Protein Negative (Negative); Urine Specific Gravity 1.008 (1.010-1.030); Urine Urobilinogen Negative (Negative)
--- NOTE | 2017-10-02 18:44 | RAD ---
Indication: Cough, fever. 2 views of the chest including dual energy PA views demonstrates no mediastinal shift. Heart is of normal size and configuration. Lung snyder are clear. IMPRESSION: No active cardiopulmonary disease is noted.
[2017-10-02 19:19] LABS: ABS Basophils 0.1 10^3/ul (0-0.2); ABS Eosinophils 0.2 10^3/ul (0-0.6); ABS Lymphocytes 2.6 10^3/ul (1.0-4.8); ABS Monocytes 1.9 10^3/ul (0-0.8); ABS Neutrophils 10.6 10^3/ul (1.5-7.7); ABS Nucleated RBC 0 10^3/ul; Eosinophil % 1.2 % (0-6); Hematocrit 31 % (42-52); Hemoglobin 10.7 g/dl (14.0-18.0); Lymphocyte % 17.2 % (25-47); Mean Corpuscular HGB Conc 35 g/dl (31-36); Mean Corpuscular Hemoglobin 33 pg (27-31); Mean Corpuscular Volume 94 fL (80-94); Mean Platelet Volume 9 um3 (7.4-10.4); Nucleated Red Blood Cells % 0; Platelet Count 89 10^3/ul (150-450); Red Blood Count 3.27 10^6/ul (4.0-5.4); Red Cell Distribution Width 13 % (10.5-15); White Blood Count 15.3 10^3/ul (3.5-10.8)
[2017-10-02] MEDS ORDERED: Iodixanol* (CONTRAST) 320 MG/ML 100 ML SDV IV ONE (22:02)
--- NOTE | 2017-10-02 23:51 | ED ---
Charly Delacruz Stephanie, scribed for Polo Mello MD on 10/02/17 at 1753 . Complex/Multi-Sys Presentation - HPI Summary HPI Summary: The pt is a 57 y/o M presenting to the ED with c/o weakness that began at 16:00 today. The pt was discharged from [facility] yesterday afternoon after having his femoral artery cleaned out yesterday. Symptoms include chills, diaphoresis, SOB , shakes and cough. The pt denies CP. - History Of Current Complaint Chief Complaint: EDWeakness Time Seen by Provider: 10/02/17 17:48 Hx Obtained From: Patient Onset/Duration: Sudden Onset, Still Present Timing: Constant Associated Signs And Symptoms: Positive: Weakness, SOB, Cough, Other - chills, diaphoresis. Negative: Chest Pain - Allergies/Home Medications Allergies/Adverse Reactions: Allergies Allergy/AdvReac Type Severity Reaction Status Date / Time Penicillins Allergy Hives Verified 10/02/17 17:44 PMH/Surg Hx/FS Hx/Imm Hx Endocrine/Hematology History: Reports: Hx Anticoagulant Therapy Denies: Hx Blood Disorders, Hx Diabetes Cardiovascular History: Reports: Hx Hypercholesterolemia, Hx Peripheral Vascular Disease, Other Cardiovascular Problems/Disorders - hardening of the arteries Denies: Hx Hypertension History: Denies: Hx Renal Disease Sensory History: Reports: Hx Contacts or Glasses Opthamlomology History: Reports: Hx Contacts or Glasses - Surgical History Surgery Procedure, Year, and Place: 01/2007 abdominal aorta repair; 07/2008 femoral bypass; 02/2011 arterial femoral bypass - Immunization History Date of Influenza Vaccine: declines Infectious Disease History: No Infectious Disease History: Denies: Traveled Outside the [place] in Last 30 Days - Family History Known Family History: Positive: Unknown - Pt denies fhx. - Social History Occupation: Employed Part-time Lives: Alone Alcohol Use: None Hx Substance Use: No Substance Use Type: Reports: None Smoking Status (MU): Heavy Every Day Tobacco Smoker Amount Used/How Often: 1 PDD Length of Time of Smoking/Using Tobacco: previously, 3PPD Review of Systems Positive: Chills, Skin Diaphoresis, Other - shakes. Negative: Fever Negative: Chest Pain Positive: Shortness Of Breath, Cough Positive: Weakness All Other Systems Reviewed And Are Negative: Yes Physical Exam - Summary Physical Exam Summary: Appearance: Well-appearing, Well-nourished Skin: Warm, Dry, No rash Eyes: Normal, PERRL, EOMI, sclera anicteric ENT: Normal Neck: Supple, nontender Respiratory: rales bilaterally over lower lobes Cardiovascular: S1, S2, no murmur, no rub, no gallop Abdomen: Soft, nontender, no organomegaly, healing wound R groin with no sign discharge and no evidence of cellulitis. Some mild swelling in that portion of groin Bowel sounds: Present Musculoskeletal: Strength/ROM Intact, no edema, no pulses present bilaterally below femoral arteries. Neurological: Normal, A&Ox3, cranial nerves II-XII WNL, follows commands, gait not tested, sensation intact to pin and light touch Psychiatric: affect normal, behavior appropriate, dressed appropriately, judgment intact Triage Information Reviewed: Yes Vital Signs On Initial Exam: Initial Vitals Temp Pulse Resp BP Pulse Ox 100.9 F 116 18 123/69 93 10/02/17 17:39 10/02/17 17:39 10/02/17 17:39 10/02/17 17:39 10/02/17 17:39 Vital Signs Reviewed: Yes Diagnostics - Vital Signs Vital Signs Temp Pulse Resp BP Pulse Ox 10/02/17 17:44 116 18 94 10/02/17 17:39 100.9 F 116 18 123/69 93 - Laboratory Lab Results: Lab Results 10/02/17 10/02/17 10/02/17 Range/Units 18:15 18:45 18:45 WBC 15.3 H (3.5-10.8) 10^3/ul RBC 3.27 L (4.0-5.4) 10^6/ul Hgb 10.7 L (14.0-18.0) g/dl Hct 31 L (42-52) % MCV 94 (80-94) fL MCH 33 H (27-31) pg MCHC 35 (31-36) g/dl RDW 13 (10.5-15) % Plt Count 89 L (150-450) 10^3/ul MPV 9 (7.4-10.4) um3 Neut % (Auto) 68.9 (38-83) % Lymph % (Auto) 17.2 L (25-47) % Castro % (Auto) 12.3 H (0-7) % Eos % (Auto) 1.2 (0-6) % Baso % (Auto) 0.4 (0-2) % Absolute Neuts (auto) 10.6 H (1.5-7.7) 10^3/ul Absolute Lymphs (auto) 2.6 (1.0-4.8) 10^3/ul Absolute Monos (auto) 1.9 H (0-0.8) 10^3/ul Absolute Eos (auto) 0.2 (0-0.6) 10^3/ul Absolute Basos (auto) 0.1 (0-0.2) 10^3/ul Absolute Nucleated RBC 0 10^3/ul Nucleated RBC % 0 Sodium 134 (133-145) mmol/L Potassium 3.6 (3.5-5.0) mmol/L Chloride 102 (101-111) mmol/L Carbon Dioxide 27 (22-32) mmol/L Anion Gap 5 (2-11) mmol/L BUN 12 (6-24) mg/dL Creatinine 0.93 (0.67-1.17) mg/dL Est GFR ( Amer) 108.1 (>60) Est GFR (Non-Af Amer) 84.0 (>60) BUN/Creatinine Ratio 12.9 (8-20) Glucose 134 H (70-100) mg/dL Lactic Acid (0.5-2.0) mmol/L Calcium 9.1 (8.6-10.3) mg/dL Total Bilirubin 0.60 (0.2-1.0) mg/dL AST 20 (13-39) U/L ALT 23 (7-52) U/L Alkaline Phosphatase 55 (34-104) U/L Total Protein 6.6 (6.4-8.9) g/dL Albumin 3.8 (3.2-5.2) g/dL Globulin 2.8 (2-4) g/dL Albumin/Globulin Ratio 1.4 (1-3) Urine Color Yellow Urine Appearance Clear Urine pH 7.0 (5-9) Ur Specific [place] 1.008 L (1.010-1.030) Urine Protein Negative (Negative) Urine Ketones Negative (Negative) Urine Blood Negative (Negative) Urine Nitrate Negative (Negative) Urine Bilirubin Negative (Negative) Urine Urobilinogen Negative (Negative) Ur Leukocyte Esterase Negative (Negative) Urine Glucose Negative (Negative) 10/02/17 Range/Units 21:14 WBC (3.5-10.8) 10^3/ul RBC (4.0-5.4) 10^6/ul Hgb (14.0-18.0) g/dl Hct (42-52) % MCV (80-94) fL MCH (27-31) pg MCHC (31-36) g/dl RDW (10.5-15) % Plt Count (150-450) 10^3/ul MPV (7.4-10.4) um3 Neut % (Auto) (38-83) % Lymph % (Auto) (25-47) % Castro % (Auto) (0-7) % Eos % (Auto) (0-6) % Baso % (Auto) (0-2) % Absolute Neuts (auto) (1.5-7.7) 10^3/ul Absolute Lymphs (auto) (1.0-4.8) 10^3/ul Absolute Monos (auto) (0-0.8) 10^3/ul Absolute Eos (auto) (0-0.6) 10^3/ul Absolute Basos (auto) (0-0.2) 10^3/ul Absolute Nucleated RBC 10^3/ul Nucleated RBC % Sodium (133-145) mmol/L Potassium (3.5-5.0) mmol/L Chloride (101-111) mmol/L Carbon Dioxide (22-32) mmol/L Anion Gap (2-11) mmol/L BUN (6-24) mg/dL Creatinine (0.67-1.17) mg/dL Est GFR ( Amer) (>60) Est GFR (Non-Af Amer) (>60) BUN/Creatinine Ratio (8-20) Glucose (70-100) mg/dL Lactic Acid 1.5 (0.5-2.0) mmol/L Calcium (8.6-10.3) mg/dL Total Bilirubin (0.2-1.0) mg/dL AST (13-39) U/L ALT (7-52) U/L Alkaline Phosphatase (34-104) U/L Total Protein (6.4-8.9) g/dL Albumin (3.2-5.2) g/dL Globulin (2-4) g/dL Albumin/Globulin Ratio (1-3) Urine Color Urine Appearance Urine pH (5-9) Ur Specific [place] (1.010-1.030) Urine Protein (Negative) Urine Ketones (Negative) Urine Blood (Negative) Urine Nitrate (Negative) Urine Bilirubin (Negative) Urine Urobilinogen (Negative) Ur Leukocyte Esterase (Negative) Urine Glucose (Negative) Result Diagrams: 10/02/17 18:45 10/02/17 18:45 Lab Statement: Any lab studies that have been ordered have been reviewed, and results considered in the medical decision making process. - Radiology CXR Xray Interpretation: No Acute Changes Radiology Interpretation Completed By: Radiologist - No active cardiopulmonary disease is noted. ED physician has reviewed this imaging report and agrees. - CT CT CT Interpretation: No Acute Changes - no evidence for abscess or significant fluid collection.mild post operative changes, no evidence for retroperitoneal changes. Complex Multi-Symp Course/Dx Course Of Treatment: The pt is a signout to Dr. Cabrera at shift change pending abdomen/pelvis CT report. - Diagnoses Provider Diagnoses: Fever, Post-operative infection Discharge - Discharge Plan Condition: Good Disposition: HOME Discharge Disposition Comment: The pt is a signout to Dr. Cabrera at shift change pending abdomen/pelvis CT Patient Education Materials: Acetaminophen (By mouth) Referrals: Reyna Morales, [facility] [Primary Care Provider] - Additional Instructions: follow up with vascular surgeon if fever persists The documentation as recorded by the Charly luo Stephanie accurately reflects the service I personally performed and the decisions made by me, Polo Mello MD.
[2017-10-03 01:26] VITALS: BP 141/61
--- NOTE | 2017-10-03 07:41 | RAD ---
CLINICAL HISTORY: Possible retroperitoneal hematoma, right iliac pseudoaneurysm COMPARISON: February 09, 2017 TECHNIQUE: Multiple contiguous axial CT scans were obtained of the abdomen and pelvis after the administration of intravenous contrast. Coronal and sagittal multiplanar reformations are submitted for review. Oral contrast was administered. Delayed images were obtained through the abdomen and pelvis. FINDINGS: LUNG BASES: The lung bases are clear. LIVER: The liver is diffusely low in attenuation compared to the spleen. There are no focal hepatic parenchymal masses. The liver is enlarged measuring 20 cm in long axis. BILE DUCTS: There is no intrahepatic or extrahepatic biliary dilatation. GALLBLADDER: The gallbladder is normal, without pericholecystic inflammatory change. PANCREAS: The pancreas is normal, without mass or ductal dilatation. SPLEEN: Normal in size and appearance. UPPER GI TRACT: Evaluation of the gastrointestinal tract is limited by incomplete gastric distention. The upper GI tract is unremarkable. SMALL BOWEL AND MESENTERY: The small bowel is normal in contour, course, and caliber. There is no obstruction or dilatation. COLON: The colon is normal in contour, course, caliber. There is no pericolonic inflammatory change. ADRENALS: Normal bilaterally. KIDNEYS: The kidneys are normal in shape, size, contour, and axis. There is no hydronephrosis or nephrolithiasis. BLADDER: The bladder is smooth in contour. PELVIC ORGANS: The prostate gland is normal. The seminal vesicles are symmetric. AORTA: There is atherosclerosis of the abdominal aorta and its branches. 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 There is an aortic right iliac graft of the femoral-femoral bypass graft. There is no appreciable aneurysm or dissection.. IVC: Unremarkable LYMPH NODES: There is no lymphadenopathy by size criteria. ABDOMINAL WALL: There is no evidence for abdominal wall hernia. BONES AND SOFT TISSUES: Mild degenerative changes are noted. There is stranding of the subcutis fat in the right inguinal region with small amount of free fluid. There is no retroperitoneal hematoma. There is subcutaneous emphysema of the right iliac region. OTHER: None IMPRESSION: 1. INFLAMMATORY CHANGE AND SUBCUTANEOUS EMPHYSEMA OF THE RIGHT ILIAC REGION CONSISTENT WITH RECENT INSTRUMENTATION. PLEASE CORRELATE WITH HISTORY. 2. NO APPRECIABLE RETROPERITONEAL HEMATOMA OR PSEUDOANEURYSM. 3. STATUS POST POST AORTOILIAC AND FEMORAL-FEMORAL BYPASS GRAFT. 4. HEPATOMEGALY WITH FATTY INFILTRATION OF THE LIVER
== END 2017-10-03 00:23 | disposition home or self-care (01) ==
LOC: ED 17:30
DX: R50.9 Fever, unspecified (principal); T81.4XXA Infection following a procedure, initial encounter; Z95.1 Presence of aortocoronary bypass graft; R06.02 Shortness of breath; R05 Cough; R53.1 Weakness; K76.0 Fatty (change of) liver, not elsewhere classified; Z79.01 Long term (current) use of anticoagulants; E78.00 Pure hypercholesterolemia, unspecified; I70.209 Unspecified atherosclerosis of native arteries of extremities, unspecified extremity; Z88.0 Allergy status to penicillin; F17.210 Nicotine dependence, cigarettes, uncomplicated
CPT/HCPCS: 36415; 71046; 74177; 80053; 81003; 83605; 85025; 85060; 87040; 94640; 96360; 96361; 99284; Q9967